=== PATIENT | male | born 1970 | race Caucasian/White ===

== ENCOUNTER 2021-11-05 08:55 | Inpatient (IN) ==
[2021-11-05] MEDS ORDERED: ONDANSETRON INJ 2 MG/ML 2 ML VIAL IV STA (09:14)
[2021-11-05] MEDS ORDERED: LABETALOL HCL IV 5 MG/ML 20ML IV STA (09:14)
[2021-11-05] MEDS ORDERED: MoRPHine SULFATE 4 MG/ML 1 ML CARP\\VIAL IV STA (09:14)
--- NOTE | 2021-11-05 09:17 | Emergency Department Note ---
Impression & Plan Chest pain ADMIT ED Provider Note HPI: The patient is a 51-year-old gentleman with longstanding history of smoking, states he otherwise does not have any medical issues but does not follow with a physician for about the past 10 years, presents emergency department chief complaint of 2 hours of left-sided chest pain that radiates down his left arm. Patient states that at times the symptoms are relatively severe, states the pain has been constant but waxes and wanes in severity. On arrival here to the ED the patient is noted to be hypertensive at 200/113, heart rate is within normal limits, he is saturating well on room air, he is in mild distress secondary to discomfort on my initial assessment. ROS: -Cardio: Left-sided chest discomfort *10 point review systems was conducted and is otherwise negative unless stated above *Outpatient medications and allergy history reviewed PE: General: Alert HEENT: Normocephalic, atraumatic Eyes: Extraocular eye movement is intact, no scleral erythema Pulmonary: Clear to auscultation bilaterally, no wheezing Cardio: Regular rate and rhythm GI: Abdomen is soft, nontender : No suprapubic tenderness MSK: No evidence of trauma or malformation of the extremities, no edema Skin: No evidence of rash Neuro: Alert, no focal deficits Psychiatric: Cooperative quality assurance monitor: - An order was placed for continuous cardiac monitoring - Patient was noted to be in sinus rhythm with rate of 70 EKG: Rate: 75 Rhythm: Sinus rhythm Intervals: NE interval 102 ms, otherwise within normal limits ST changes: No ST elevation Time: 0906 Medical Decision Making: Patient presents the emergency department the chief complaint chest pain, has been ongoing now for several hours, on arrival here to the ED the patient's initial EKG does not show any acute ischemic changes, IV was established, lab work obtained, patient was placed on a manager cardiac. Lab work shows a high-sensitivity troponin elevation of approximately 42, CT angiography of the chest was ordered and does not show any evidence of aortic dissection. At 1 point during the patient's stay here in the ED he complained of another severe episode of chest discomfort, repeat EKG was obtained and does not show any evidence of any acute ischemic changes. Patient was given morphine, IV Zofran, a dose of IV Dilaudid, he was also given a dose of IV labetalol. His blood pressure did improve from 200 systolic down to 180 systolic. Diastolic pressures elevated in the 110s. Given the patient's recurrent episodes of pain in addition to his longstanding smoking history and poor outpatient follow-up, I do feel he would benefit from admission and will require admission for cardiology consultation, trending of troponins, and further diagnostic management. Case was discussed with the on-call midlevel provider for [facility], Chrystal Martel, and the patient was placed for admission in stable condition for further management. He was ordered aspirin prior to admission, states he does have an aspirin allergy listed although this was only when he is was a child and he has not had any issues as an adult when he is taking aspirin. Critical care time: 37 minutes -Stabilization of hypertensive emergency with chest pain in the setting of an elevated high-sensitivity troponin and systolic blood pressure of 200, requiring IV antihypertensive medications, interpretation of diagnostic studies, discussion with other healthcare providers and arrangement of admission Diagnosis: 1. Chest Pain 2. Elevated high-sensitivity troponin 3. Hypertension/hypertensive emergency 4. History of tobacco use/tobacco cessation counseling encounter Disposition: Admission Abdullahi Faustin DO Emergency Medicine Past Med/Surg History Social History Smoking Status: Current every day smoker Feels Safe at Home: Yes Allergies Allergies Allergy/AdvReac Type Severity Reaction Status Date / Time aspirin Allergy Unknown asthma Verified 11/05/21 11:18 flare up Home Meds Home Medications Medication Instructions Recorded Confirmed CLONAZEPAM (KLONOPIN) 1 mg PO DAILY #0 09/08/11 CYCLOBENZAPRINE HCL (FLEXERIL) 10 mg PO TID #0 09/08/11 BUPROPION HCL (WELLBUTRIN SR) 150 mg PO DAILY #0 10/17/11 Paroxetine (Paxil) 40 mg PO DAILY #0 10/17/11 Results & Data (ED) Vital Signs Vital Signs - 24 hr 11/05/21 08:59 11/05/21 09:14 11/05/21 09:15 Temperature 36.3 C L Temperature Source Temporal Artery Scan Pulse Rate 91 H Pulse Rate [Apical] 75 Pulse Rhythm [Apical] Regular Respiratory Rate 18 16 Respiratory Effort / Characteristics Non-Labored Non-Labored Respiratory Depth Normal Normal Blood Pressure 200/113 H Blood Pressure [Left Arm] 181/120 H Blood Pressure Mean 142 Blood Pressure Mean [Left Arm] 140 Pulse Oximetry 99 98 97 Oxygen Delivery Method Room Air Room Air Room Air Sepsis Recent Fever Within 48 Hours No Sepsis New/Unexplained Change in Mental Status No Sepsis Action Taken by Nursing No Action Required 11/05/21 09:30 11/05/21 09:45 Temperature Temperature Source Pulse Rate Pulse Rate [Apical] 76 66 Pulse Rhythm [Apical] Regular Regular Respiratory Rate 14 14 Respiratory Effort / Characteristics Non-Labored Non-Labored Respiratory Depth Normal Normal Blood Pressure Blood Pressure [Left Arm] 178/113 H 182/116 H Blood Pressure Mean Blood Pressure Mean [Left Arm] 134 138 Pulse Oximetry 97 96 Oxygen Delivery Method Room Air Room Air Sepsis Recent Fever Within 48 Hours Sepsis New/Unexplained Change in Mental Status Sepsis Action Taken by Nursing Laboratory Data Result diagrams: 11/05/21 09:11 11/05/21 09:11 Lab Results 11/05/21 11/05/21 11/05/21 Range/Units 09:11 09:11 09:11 WBC 8.51 (4.8-10.8) K/uL RBC 5.19 (4.7-6.1) M/uL Hgb 15.7 (14.0-18.0) g/dL Hct 45.3 (42-52) % MCV 87.3 (80-100) fL MCH 30.3 (25-34) pg MCHC 34.7 (32-36) g/dL RDW Std Deviation 43.3 (36.4-46.3) fL RDW Coeff of Sindi 13.4 (11.5-14.5) % Plt Count 324 (130-400) K/uL MPV 9.7 (7.4-10.4) fL Immature Gran % (Auto) 0.2 % Neut % (Auto) 66.7 % Lymph % (Auto) 19.5 % Sawyer % (Auto) 6.9 % Eos % (Auto) 5.4 % Baso % (Auto) 1.3 % Neut # (Auto) 5.67 (1.4-6.5) K/uL Lymph # (Auto) 1.66 (1.2-3.4) K/uL Sawyer # (Auto) 0.59 (0.11-0.59) K/uL Eos # (Auto) 0.46 (0-0.5) K/uL Baso # (Auto) 0.11 (0-0.2) K/uL Immature Gran # (Auto) 0.02 (0.00-0.02) K/uL Sodium 139 (136-145) mmol/L Potassium 4.1 (3.5-5.1) mmol/L Chloride 109 H (98-107) mmol/L Carbon Dioxide 24 (21-32) mmol/L Anion Gap 6 (3-11) BUN 11 (6-23) mg/dl Creatinine 1.15 (0.6-1.4) mg/dl Est Cr Clr Drug Dosing 75.7 ml/min Est GFR ( Amer) 83.7 ml/min Est GFR (Non-Af Amer) 72.3 ml/min BUN/Creatinine Ratio 9.6 L (10-20) Glucose 115 H (70-99(Fasting)) mg/dl Calcium 9.1 (8.5-10.1) mg/dl Total Bilirubin 0.4 (0.2-1.0) mg/dl AST 11 L (13-39) U/L ALT 12 (7-52) U/L Alkaline Phosphatase 62 (34-104) U/L Troponin I High Sens 42.7 H (0-20) pg/ml Total Protein 6.9 (6.0-8.3) gm/dl Albumin 4.1 (3.4-5.0) gm/dl Globulin 2.8 (2.5-4.0) gm/dl Albumin/Globulin Ratio 1.5 (0.9-2) Lipase 105 H (11-82) U/L Administered Medications Discontinued Medications Hydromorphone HCl (Hydromorphone Inj 0.5 Mg/0.5 Ml Syr) 0.5 mg IV NOW STA Stop: 11/05/21 10:45 Last Admin: 11/05/21 11:06 Dose: 0.5 mg Documented by: [id number] Ioversol (Optiray 320 125ml) 120 ml IV ONCE ONE Stop: 11/05/21 10:13 Last Admin: 11/05/21 10:12 Dose: 120 ml Documented by: [id number] Labetalol HCl (Labetalol Hcl Iv 5 Mg/Ml 20ml) 10 mg IV NOW STA Stop: 11/05/21 09:15 Last Admin: 11/05/21 09:36 Dose: 10 mg Documented by: [id number] Cosigned by: [id number] Morphine Sulfate (Morphine Sulfate 4 Mg/Ml 1 Ml Carp\Vial) 4 mg IV NOW STA Stop: 11/05/21 09:15 Last Admin: 11/05/21 09:19 Dose: 4 mg Documented by: [id number] Ondansetron HCl (Ondansetron Inj 2 Mg/Ml 2 Ml Vial) 4 mg IV NOW STA Stop: 11/05/21 09:15 Last Admin: 11/05/21 09:19 Dose: 4 mg Documented by: [id number] Imaging Data Radiologist's Impression: Chest CTA 11/05/21 09:14 CT angio chest dissec wo/w con HISTORY: 51 years-old Male Chest pain, hypertension, eval for dissection acute atypical chest pain with shortness of breath COMPARISON: Chest radiograph of same day TECHNIQUE: CTA of the chest was obtained both with and without the use of 120 mL Optiray 320. 3-D coronal and sagittal MIPS were obtained from the axial data set and were submitted for review. All measurements were obtained according to NASCET criteria. A dose lowering technique was used consistent with the principals of CONCEPCION. FINDINGS: CTA: The heart is normal in size. Moderate coronary artery calcifications. There is no pericardial effusion. Atherosclerosis of the thoracic aorta without aneurysm or dissection. No mediastinal or intramural hematoma. The opacified pulmonary artery is unremarkable. No pulmonary emboli are identified. CT CHEST: Unremarkable thyroid. Subcentimeter mediastinal, hilar and axillary chain lymph nodes are likely physiologic. There is no pneumothorax, pleural effusion, airspace consolidation or overt pulmonary edema. Mild pulmonary emphysema. Mild bronchial wall thickening. Mild mosaic attenuation of the right lower lobe. The central airways are patent. No acute process of the imaged upper abdomen. 1.5 cm exophytic cyst of the superior pole left kidney. There is a 1.2 cm arterially enhancing focus noted within the right hepatic lobe on image 230. Enhancing lesion versus vascular shunting are the differential considerations. Indeterminate 8 mm hypodense focus of the right hepatic lobe on image 57 is incompletely characterized on this exam. Unremarkable soft tissues. No acute fracture or destructive bone lesion. IMPRESSION: 1. Unremarkable CTA of the chest. 2. Mild cardiomegaly with moderate coronary artery calcifications. 3. Mild pulmonary emphysema with bronchial wall thickening suggestive of bronchitis or reactive airway disease. ACT 112: Negative or not required by law. The above report was generated using voice recognition software. It may contain grammatical, syntax or spelling errors. Electronically signed by: Maurice Mccoy M.D. 11/05/2021 10:34 AM Chest X-Ray 11/05/21 09:14 XR chest 1V portable HISTORY: 51 years-old Male Chest Pain acute atypical chest pain COMPARISON: None TECHNIQUE: Portable AP view of the chest FINDINGS: The cardiomediastinal and hilar silhouettes are within normal limits. Mild nonspecific coarsening of the interstitium. No pneumothorax, pleural effusion, airspace consolidation or overt pulmonary edema. The bones of the chest appear grossly intact. IMPRESSION: No acute process. ACT 112: Negative or not required by law. The above report was generated using voice recognition software. It may contain grammatical, syntax or spelling errors. Electronically signed by: Maurice Mccoy M.D. 11/05/2021 9:30 AM Discharge Plan Visit Data Chief Complaint: Chest Pain Stated Complaint: CHEST PAIN - RADIATING DOWN L ARM W/NUMBNESS ED Provider: Abdullahi Faustin Discharge Problem: Chest pain Forms Stand Alone Forms: [employer] [facility] [employer] Prescriptions Prescriptions: No Action guaifenesin [Mucus Relief] 400 mg Tablet 400 mg PO BID PRN (Reason: Congestion) RF: 0 Referrals Referrals: PCP,NO [Primary Care Provider] - Discharge Problem: Chest pain Qualifiers: Chest pain type: unspecified Qualified Code(s): R07.9 - Chest pain, unspecified
--- NOTE | 2021-11-05 09:31 | XRay Report ---
XR chest 1V portable HISTORY: 51 years-old Male Chest Pain acute atypical chest pain COMPARISON: None TECHNIQUE: Portable AP view of the chest FINDINGS: The cardiomediastinal and hilar silhouettes are within normal limits. Mild nonspecific coarsening of the interstitium. No pneumothorax, pleural effusion, airspace consolidation or overt pulmonary edema. The bones of the chest appear grossly intact. IMPRESSION: No acute process. ACT 112: Negative or not required by law. The above report was generated using voice recognition software. It may contain grammatical, syntax o r spelling errors. Electronically signed by: Maurice Mccoy M.D. 11/05/2021 9:30 AM
[2021-11-05 09:34] LABS: Basophils # (auto) 0.11 K/uL (0-0.2); Basophils % (auto) 1.3 %; Eosinophils # (auto) 0.46 K/uL (0-0.5); Eosinophils % (auto) 5.4 %; Hematocrit (blood only) 45.3 % (42-52); Hemoglobin 15.7 g/dL (14.0-18.0); Immature Granulocytes # (auto) 0.02 K/uL (0.00-0.02); Immature Granulocytes % (auto) 0.2 %; Lymphocytes # (auto) 1.66 K/uL (1.2-3.4); Lymphocytes % (auto) 19.5 %; Mean Corpuscular Hemoglobin 30.3 pg (25-34); Mean Corpuscular Hgb Conc 34.7 g/dL (32-36); Mean Corpuscular Volume 87.3 fL (80-100); Mean Platelet Volume 9.7 fL (7.4-10.4); Monocytes # (auto) 0.59 K/uL (0.11-0.59); Monocytes % (auto) 6.9 %; Neutrophils # (auto) 5.67 K/uL (1.4-6.5); Neutrophils % (auto) 66.7 %; Platelet Count 324 K/uL (130-400); RDW Coefficient of Variation 13.4 % (11.5-14.5); RDW Standard Deviation 43.3 fL (36.4-46.3); Red Blood Count 5.19 M/uL (4.7-6.1); White Blood Count 8.51 K/uL (4.8-10.8)
[2021-11-05 09:44] LABS: Albumin Level 4.1 gm/dl (3.4-5.0); Bilirubin,Total 0.4 mg/dl (0.2-1.0); Calcium 9.1 mg/dl (8.5-10.1); Potassium 4.1 mmol/L (3.5-5.1)
[2021-11-05 09:50] LABS: Est GFR (African American) 83.7 ml/min
[2021-11-05 09:51] LABS: Albumin Globulin Ratio 1.5 (0.9-2); BUN Creatinine Ratio 9.6 (10-20); Creatinine Clr Calc Pharmacy 75.7 ml/min; Est GFR (Non-African American) 72.3 ml/min; Globulin 2.8 gm/dl (2.5-4.0); Total Protein 6.9 gm/dl (6.0-8.3)
[2021-11-05] MEDS ORDERED: OPTIRAY 320 125ml IV ONE (10:12)
--- NOTE | 2021-11-05 10:37 | CT Scan Report ---
CT angio chest dissec wo/w con HISTORY: 51 years-old Male Chest pain, hypertension, eval for dissection acute atypical chest pain w ith shortness of breath COMPARISON: Chest radiograph of same day TECHNIQUE: CTA of the chest was obtained both with and without the use of 120 mL Optiray 320. 3-D cor onal and sagittal MIPS were obtained from the axial data set and were submitted for review. All measu rements were obtained according to NASCET criteria. A dose lowering technique was used consistent wit h the principals ronald JAVIER. FINDINGS: CTA: The heart is normal in size. Moderate coronary artery calcifications. There is no pericardial effusio n. Atherosclerosis of the thoracic aorta without aneurysm or dissection. No mediastinal or intramural hematoma. The opacified pulmonary artery is unremarkable. No pulmonary emboli are identified. CT CHEST: Unremarkable thyroid. Subcentimeter mediastinal, hilar and axillary chain lymph nodes are likely phys iologic. There is no pneumothorax, pleural effusion, airspace consolidation or overt pulmonary edema. Mild pulmonary emphysema. Mild bronchial wall thickening. Mild mosaic attenuation of the right lower lobe. The central airways are patent. No acute process of the imaged upper abdomen. 1.5 cm exophytic cyst of the superior pole left kidney. There is a 1.2 cm arterially enhancing focus noted within the right hepatic lobe on image 230. Enhan cing lesion versus vascular shunting are the differential considerations. Indeterminate 8 mm hypodens e focus of the right hepatic lobe on image 57 is incompletely characterized on this exam. Unremarkabl e soft tissues. No acute fracture or destructive bone lesion. IMPRESSION: 1. Unremarkable CTA of the chest. 2. Mild cardiomegaly with moderate coronary artery calcifications. 3. Mild pulmonary emphysema with bronchial wall thickening suggestive of bronchitis or reactive airwa y disease. ACT 112: Negative or not required by law. The above report was generated using voice recognition software. It may contain grammatical, syntax o r spelling errors. Electronically signed by: Maurice Mccoy M.D. 11/05/2021 10:34 AM
[2021-11-05] MEDS ORDERED: HYDROmorphone INJ 0.5 MG/0.5 ML SYR IV STA (10:44)
[2021-11-05] MEDS ORDERED: ASPIRIN CHEW 324 MG PO STA (11:18)
[2021-11-05] MEDS ORDERED: NITROGLYCERIN SL 0.4 MG/TAB TAB SL STA (12:02)
--- NOTE | 2021-11-05 12:28 | History & Physical Report ---
Date of Service November 05, 2021 Assessment & Plan (1) Chest pain: (2) NSTEMI (non-ST elevated myocardial infarction): (3) Hypertensive emergency: (4) Tobacco abuse: Plan: This is a 51-year-old male who has significant past medical history of tobacco abuse and does not regularly see a PCP who presents to ED complaining of chest pain since 7 AM. Pt presented to ED with crushing L sided chest pain radiating to LUE with numbness and tingling. Initial ECG @ 906 per my interpretation shows inferior st depressions. Repeat Ecg during my eval @ 1203 showed resolution of these changes. Initial trop was 42 and repeat in 2 hrs was 113. Mild improvement after 3 NTG, no improvement after IV morphine or dilaudid. He did receive 10mg IV labetolol which causes mild bradycardia but no improvement in BP. After nitro BP did improve to 130s/80s transiently Chest Pain NSTEMI Hypertensive emergency Case was discussed with interventional cardiology Dr. Steven, he will be taken for emergent cardiac catheterization further plan to be determined post operatively a1c, lipid panel ordered for a.m. echo cardiogram ordered, trops trended Tobacco abuse educate on smoking cessation Dispo: to cardiac record label intern, then further dispo to be determined ICU vs PCU PCP: None, needs to establish FULL CODE Pt was seen and examined in collaboration with Dr. Gonzalez, please see addendum History of Present Illness Chief Complaint: CP since 7:00 a.m. Primary Care Provider: NO PCP This is a 51-year-old male who has significant past medical history of tobacco abuse and does not regularly see a PCP who presents to ED complaining of chest pain since 7 AM. Pain started when he was drinking a cup of coffee. It is located along the left chest wall and radiates down her left arm with associated numbness and tingling. Pain has been constant since 7 AM, but waxes and wanes in severity. Currently pain is a 8 out of 10 and described as a, "crushing." It is made worse with deep breathing, but nothing seems to make it better. It radiates to L arm with numbness and tingling. He admits to experiencing this pain in the past, specifically a few years ago when he would work out in his heart rate would get high. His symptoms would resolve when he would rest. He has never had the symptoms persist. He works at [employer] and is not overly an active person. He does admit to occasionally getting chest pain with exertion that would resolve with rest. He also admits to being short of breath. He denies any diaphoresis, palpitations, nausea or vomiting. He has no known history of any high blood pressure, high cholesterol or hyperlipidemia. He is a 1 pack/day smoker for the past 35 years. He rarely drinks alcohol. His father has a history of high blood pressure and mother has a history of stroke and dementia. His brother, who is younger than him, has suffered multiple heart attacks. He is unsure exactly what age. His brother also smokes. He denies any weight gain or loss. He denies any orthopnea, PND, edema, recent illness. He does have a chronic cough has been ongoing for the past 8 months. It is wet in nature and produces clear sputum. He denies ever being tested or having any pulmonary function studies to be evaluated for COPD. In ED patient was s ignificantly hypertensive initially with blood pressures in the 200s over 113's. His CBC and CMP was generally unremarkable except for initial elevated troponin at 42, glucose 115 and lipase at 105. His initial EKG at 9:[address] did [address] depressions inferiorly in leads II, III and aVF. Repeat EKGs show this has resolved. His repeat troponin in 2 hours elevated significantly at 113. He did receive 10 mg of IV labetalol with no improvement in blood pressure but did drop his heart rate into the 50s. He also received IV morphine and Dilaudid. Lastly he received full dose aspirin. Allergies Allergy/AdvReac Type Severity Reaction Status Date / Time aspirin Allergy Unknown asthma Verified 11/05/21 11:18 flare up Home Medications Medication Instructions Recorded Confirmed Type guaifenesin 400 mg tablet (Mucus 400 mg PO BID PRN 11/05/21 11/05/21 History Relief) Past Med/Surg History Medical History (Updated 11/05/21 @ 12:47 by Chrystal Martel PA-C) Tobacco abuse Surgical History (Updated 11/05/21 @ 12:19 by Chrystal Martel PA-C) No pertinent past surgical history Family History (Updated 11/05/21 @ 12:19 by Chrystal Martel PA-C) Brother Coronary heart disease Father Hypertension Mother Stroke Social History (Updated 11/05/21 @ 12:22 by Chrystal Martel PA-C) Smoking Status: Never smoker Tobacco Type: Cigarettes Second Hand Exposure: No; Hx Alcohol Use: No Hx Substance Use: No Preferred Language: Bahamian Pediatric Geneticist Required: No Beliefs That Will Affect Care: None Current Living Situation: Alone Feels Safe at Home: Yes Review of Systems Review of Systems: All systems reviewed & are unremarkable except as noted in HPI & below Physical Exam Physical Exam: Constitutional: WD/WN, appears acutely ill, vitals as above, in pain, slightly diaphoretic, sitting up in bed, pleasant, conversing easily Head: Normocephalic, Atraumatic Eyes: PERRL, conjunctivae normal, anicteric sclerae ENMT: external ear and nose normal, oropharynx normal Neck: trachea midline, no thyromegaly normal visual inspection Respiratory: normal respiratory effort, lungs clear to auscultation, no wheeze, rales, rhonchi. Normal insp/exp effort, no accessory muscle use Cardiovascular: RRR, no murmur, no edema Vessels: no JVD or carotid bruit Chest: normal inspection of chest , cp not reproducible Abdomen: normal bowel sounds, soft, nontender, no hepatosplenomegaly Musculoskeletal: no cyanosis or clubbing, extremities motor strength 5/5 Skin: no rashes, warm and dry normal turgor Neurologic: PERRL, EOMI, accommodation nl, no face palsy, no dysarthria CN's II-XI intact bilaterally and moves all extremities Psychiatric: A+Ox3, euthymic affect Lymphatic: no cervical or axillary lymphadenopathy : deferred Results & Data Results & Data ([facility]) Vital Signs (Past 12 Hours) Vital Signs Temp Pulse Pulse Resp BP BP Pulse Ox 11/05/21 11:00 81 18 172/111 H 93 11/05/21 09:45 66 14 182/116 H 96 11/05/21 09:30 76 14 178/113 H 97 11/05/21 09:15 75 16 181/120 H 97 11/05/21 09:14 98 11/05/21 08:59 36.3 C L 91 H 18 200/113 H 99 Diagnostic Findings Chest CTA 11/05/21 09:14 CT angio chest dissec wo/w con HISTORY: 51 years-old Male Chest pain, hypertension, eval for dissection acute atypical chest pain with shortness of breath COMPARISON: Chest radiograph of same day TECHNIQUE: CTA of the chest was obtained both with and without the use of 120 mL Optiray 320. 3-D coronal and sagittal MIPS were obtained from the axial data set and were submitted for review. All measurements were obtained according to NASCET criteria. A dose lowering technique was used consistent with the principals of CONCEPCION. FINDINGS: CTA: The heart is normal in size. Moderate coronary artery calcifications. There is no pericardial effusion. Atherosclerosis of the thoracic aorta without aneurysm or dissection. No mediastinal or intramural hematoma. The opacified pulmonary artery is unremarkable. No pulmonary emboli are identified. CT CHEST: Unremarkable thyroid. Subcentimeter mediastinal, hilar and axillary chain lymph nodes are likely physiologic. There is no pneumothorax, pleural effusion, airspace consolidation or overt pulmonary edema. Mild pulmonary emphysema. Mild bronchial wall thickening. Mild mosaic attenuation of the right lower lobe. The central airways are patent. No acute process of the imaged upper abdomen. 1.5 cm exophytic cyst of the superior pole left kidney. There is a 1.2 cm arterially enhancing focus noted within the right hepatic lobe on image 230. Enhancing lesion versus vascular shunting are the differential considerations. Indeterminate 8 mm hypodense focus of the right hepatic lobe on image 57 is incompletely characterized on this exam. Unremarkable soft tissues. No acute fracture or destructive bone lesion. IMPRESSION: 1. Unremarkable CTA of the chest. 2. Mild cardiomegaly with moderate coronary artery calcifications. 3. Mild pulmonary emphysema with bronchial wall thickening suggestive of bronchitis or reactive airway disease. ACT 112: Negative or not required by law. The above report was generated using voice recognition software. It may contain grammatical, syntax or spelling errors. Electronically signed by: Maurice Mccoy M.D. 11/05/2021 10:34 AM Chest X-Ray 11/05/21 09:14 XR chest 1V portable HISTORY: 51 years-old Male Chest Pain acute atypical chest pain COMPARISON: None TECHNIQUE: Portable AP view of the chest FINDINGS: The cardiomediastinal and hilar silhouettes are within normal limits. Mild nonspecific coarsening of the interstitium. No pneumothorax, pleural effusion, airspace consolidation or overt pulmonary edema. The bones of the chest appear grossly intact. IMPRESSION: No acute process. ACT 112: Negative or not required by law. The above report was generated using voice recognition software. It may contain grammatical, syntax or spelling errors. Electronically signed by: Maurice Mccoy M.D. 11/05/2021 9:30 AM Medications Administered Medication List Discontinued Medications Aspirin (Aspirin Chew 324 Mg) 324 mg PO NOW STA Stop: 11/05/21 11:19 Last Admin: 11/05/21 11:36 Dose: 324 mg Documented by: [id number] Hydromorphone HCl (Hydromorphone Inj 0.5 Mg/0.5 Ml Syr) 0.5 mg IV NOW STA Stop: 11/05/21 10:45 Last Admin: 11/05/21 11:06 Dose: 0.5 mg Documented by: [id number] Ioversol (Optiray 320 125ml) 120 ml IV ONCE ONE Stop: 11/05/21 10:13 Last Admin: 11/05/21 10:12 Dose: 120 ml Documented by: [id number] Labetalol HCl (Labetalol Hcl Iv 5 Mg/Ml 20ml) 10 mg IV NOW STA Stop: 11/05/21 09:15 Last Admin: 11/05/21 09:36 Dose: 10 mg Documented by: [id number] Cosigned by: [id number] Morphine Sulfate (Morphine Sulfate 4 Mg/Ml 1 Ml Carp\\Vial) 4 mg IV NOW STA Stop: 11/05/21 09:15 Last Admin: 11/05/21 09:19 Dose: 4 mg Documented by: [id number] Nitroglycerin (Nitroglycerin Sl 0.4 Mg/Tab Tab) 0.4 mg SL NOW STA Stop: 11/05/21 12:03 Last Admin: 11/05/21 12:08 Dose: 0.4 mg Documented by: [id number] Ondansetron HCl (Ondansetron Inj 2 Mg/Ml 2 Ml Vial) 4 mg IV NOW STA Stop: 11/05/21 09:15 Last Admin: 11/05/21 09:19 Dose: 4 mg Documented by: [id number] ECG Rate (beats per minute): 58 Rhythm: sinus bradycardia Findings: + RBBB Additional Comments: Initial ecg at [address] wave depressions in inferior leads COVID-19 Results Results COVID-19 Adm Lab Results: RBC 5.19 M/uL (4.7-6.1) 11/05/21 WBC 8.51 K/uL (4.8-10.8) 11/05/21 Hgb 15.7 g/dL (14.0-18.0) 11/05/21 Hct 45.3 % (42-52) 11/05/21 Plt Count 324 K/uL (130-400) 11/05/21 Neutrophils (%) (Auto) 66.7 % 11/05/21 Lymphocytes (%) (Auto) 19.5 % 11/05/21 Monocytes # (Auto) 0.59 K/uL (0.11-0.59) 11/05/21 Eosinophils # (Auto) 0.46 K/uL (0-0.5) 11/05/21 Immature Granulocyte % (Auto) 0.2 % 11/05/21 Neutrophils # (Auto) 5.67 K/uL (1.4-6.5) 11/05/21 Lymphocytes # (Auto) 1.66 K/uL (1.2-3.4) 11/05/21 Monocytes # (Auto) 0.59 K/uL (0.11-0.59) 11/05/21 Eosinophils # (Auto) 0.46 K/uL (0-0.5) 11/05/21 Basophils # (Auto) 0.11 K/uL (0-0.2) 11/05/21 Immature Granulocyte # (Auto) 0.02 K/uL (0.00-0.02) 11/05/21 Na 139 mmol/L (136-145) 11/05/21 K 4.1 mmol/L (3.5-5.1) 11/05/21 Cl 109 mmol/L (98-107) H 11/05/21 CO2 24 mmol/L (21-32) 11/05/21 Anion Gap 6 (3-11) 11/05/21 BUN 11 mg/dl (6-23) 11/05/21 Creatinine 1.15 mg/dl (0.6-1.4) 11/05/21 BUN/Creatinine Ratio 9.6 (10-20) L 11/05/21 Glucose Level 115 mg/dl (70-99(Fasting)) H 11/05/21 Ca 9.1 mg/dl (8.5-10.1) 11/05/21 Total Bilirubin 0.4 mg/dl (0.2-1.0) 11/05/21 AST/SGOT 11 U/L (13-39) L 11/05/21 ALT/SGPT 12 U/L (7-52) 11/05/21 Alkaline Phosphatase 62 U/L (34-104) 11/05/21 Total Protein 6.9 gm/dl (6.0-8.3) 11/05/21 Albumin 4.1 gm/dl (3.4-5.0) 11/05/21 Globulin 2.8 gm/dl (2.5-4.0) 11/05/21 Albumin/Globulin Ratio 1.5 (0.9-2) 11/05/21 PTT 25.9 Seconds (21.0-31.0) 11/05/21 INR 1.0 (0.9-1.1) 11/05/21 SARS-CoV-2, RNA, NAAT NEGATIVE (NEGATIVE) 11/05/21 Chest X-Ray 11/05/21 Code Status & VTE Plan Code Status FULL CODE VTE Prophylaxis Plan VTE Prophylaxis will be ordered: Yes Supervising Physician Co-Signing Physician Notes I have seen and examined the patient and have discussed the case with the provider above. I agree with the assessment and plan as stated with the following exception. 51 yo M presented to the ER with crushing left anterior chest pain with subsequent radiation into his left arm. Left arm feels weak and this is subjective as strength is intact. This began for him while he was working on his computer and drinking his morning coffee. He began looking up [place] on the computer and became more concerned. He is an active smoker with a brothe r who had 3 MIs in his 40s. He also hasn't had insurance and, therefore, hasn't seen a physician for wellness checks in 10 years. He presents with elevated BP (200/113) and doesn't know what his cholesterol is. On physical exam he is in distress because of pain that has not been controlled despite morphine, fentanyl, nitro x 3 and labetalol. Pain was not controlled despite BP at one point in the 130s systolic. Pain was described as fluctuating as if something would pop and he would have relief, however, then the pain would reoccur. Has a history of this pain in the past triggered by stress, however, it has been fleeting and not a pattern for him or long-lasting, lasting only seconds. He is oxygenating well on room air and continues to grab his chest. No gross neuro deficits and speech/,r,ory, language intact. No JVD. Extremities are warm and well-perfused. Cardiac auscultation reveals S1/2 heard without m/g/r. Radial pulses are 2+ bilaterally. Abdomen is soft, NTND. Lungs are clear to auscultation. Labwork reveals an initial positive troponin of [address] depressions in inferior leads on EKG. Two hours later, repeat trop is [address] depressions had resolved. Otherwise, CBC and BMP are within normal limits. CXR was normal and CTA revealed no evidence of dissection, with moderate coronary calcifications, and mild pulmonary emphysema with bronchial wall thickening. Coags are pending. 51 yo M smoker with untreated, uncontrolled HTN and family history of early CAD presents with hypertensive emergency and NSTEMI. As his pain is not able to be controlled and he is very symptomatic, he will be taken immediately to the record label intern for left heart catheterization. Defer to cardiology to add anticoagulant therapy. He did receive ASA 324mg at 1130 when his second troponin returned. He remains nauseous but did not vomit, with significant chest pain and hypertension. Disposition after record label intern to be determined based on findings. DO Carlos ADDENDUM: contacted by nurse that patient has been coughing for last few days. Inflamed bronchial wall on CT. Added course doxycycline and Robitussin AC/throat lozenges for comfort. Was educated earlier today about the importance of smoking cessation. DO Carlos (1) Chest pain Chest pain type: unspecified Qualified Code(s): R07.9 - Chest pain, unspecified
--- NOTE | 2021-11-05 12:59 | Communication Note ---
Date of Service: November 05, 2021 51 yo M presented to the ER with crushing left anterior chest pain with subsequent radiation into his left arm. Left arm feels weak and this is subjective as strength is intact. This began for him while he was working on his computer and drinking his morning coffee. He began looking up [place] on the computer and became more concerned. He is an active smoker with a brother who had 3 MIs in his 40s. He also hasn't had insurance and, therefore, hasn't seen a physician for wellness checks in 10 years. He presents with elevated BP (200/113) and doesn't know what his cholesterol is. On physical exam he is in distress because of pain that has not been controlled despite morphine, fentanyl, nitro x 3 and labetalol. Pain was not controlled despite BP at one point in the 130s systolic. Pain was described as fluctuating as if something would pop and he would have relief, however, then the pain would reoccur. Has a history of this pain in the past triggered by stress, however, it has been fleeting and not a pattern for him or long-lasting, lasting only seconds. He is oxygenating well on room air and continues to grab his chest. No gross neuro deficits and speech/,r,ory, language intact. No JVD. Extremities are warm and well-perfused. Cardiac auscultation reveals S1/2 heard without m/g/r. Radial pulses are 2+ bilaterally. Abdomen is soft, NTND. Lungs are clear to auscultation. Labwork reveals an initial positive troponin of [address] depressions in inferior leads on EKG. Two hours later, repeat trop is [address] depressions had resolved. Otherwise, CBC and BMP are within normal limits. CXR was normal and CTA revealed no evidence of dissection, with moderate coronary calcifications, and mild pulmonary emphysema with bronchial wall thickening. Coags are pending. 51 yo M smoker with untreated, uncontrolled HTN and family history of early CAD presents with hypertensive emergency and NSTEMI. As his pain is not able to be controlled and he is very symptomatic, he will be taken immediately to the laboratory aide for left heart catheterization. Defer to cardiology to add anticoagulant therapy. He did receive ASA 324mg at 1130 when his second troponin returned. He remains nauseous but did not vomit, with significant chest pain and hypertension. Disposition after laboratory aide to be determined based on findings. [place], DO
[2021-11-05 13:32] LABS: Partial Thromboplastin Ratio 0.9; Partial Thromboplastin Time 25.9 Seconds (21.0-31.0); Prothrombin Time 10.4 Seconds (9.0-12.0)
[2021-11-05] MEDS ORDERED: niCARdipine HCL INJ 2.5 MG/ML 10 ML AMP ONE (13:36)
[2021-11-05] MEDS ORDERED: HEPARIN (PORCINE) 1000 UNIT/ML 10 ML (CATH LAB USE ONLY) ONE (13:36)
[2021-11-05] MEDS ORDERED: MIDAZOLAM HCL 1 MG/ML 2ML VIAL ONE (13:36)
[2021-11-05] MEDS ORDERED: fentaNYL citrate 100 MCG/2 ML VIAL ONE (13:36)
[2021-11-05] MEDS ORDERED: NITROGLYCERIN/D5W 100MCG/ML 20ML SYR ONE (13:37)
--- NOTE | 2021-11-05 14:38 | Pre Anesthesia Assessment ---
Date of Service November 05, 2021 Pre Sedation Assessment Vital Signs Temp Pulse Pulse Resp BP BP Pulse Ox 11/05/21 13:26 98.8 F 69 20 142/97 H 96 11/05/21 13:18 98.8 F 67 20 142/97 H 97 11/05/21 11:00 81 18 172/111 H 93 11/05/21 09:45 66 14 182/116 H 96 11/05/21 09:30 76 14 178/113 H 97 11/05/21 09:15 75 16 181/120 H 97 11/05/21 09:14 98 11/05/21 08:59 97.3 F L 91 H 18 200/113 H 99 Cardiovascular RRR, no murmur, no edema Respiratory normal respiratory effort, lungs clear to auscultation Pre-Sedation Airway Assessment Smoking Status: Never smoker Hx Sleep Apnea: No Hx Difficult Intubation: No Short, Thick Neck: No Thyromental Distance: > or= 3.5 Finger Breadths Oral Cavity: + WNL Mallampati Class: II ASA: ASA3 NPO Status Date of Last Intake of Fluids: 11/05/21 Time of Last Intake of Fluids: 07:00 Date of Last Intake of Solid Food: 11/04/21 Time of Last Intake of Solid Foods: 19:00 Procedure Planning Contraindications for Sedation: none Current Medications Reviewed: Yes Notes The planned sedation has been discussed with the patient. Informed Consent was obtained. I have identified the patient, determined the appropriateness of sedation and have assessed the patient immediately prior to the procedure. All medicine(s) and interventions are by my order.
--- NOTE | 2021-11-05 14:38 | Post Anesthesia Assessment ---
Date of Service November 05, 2021 Post Sedation Assessment Vital Signs Temp Pulse Pulse Resp BP BP Pulse Ox 11/05/21 13:26 98.8 F 69 20 142/97 H 96 11/05/21 13:18 98.8 F 67 20 142/97 H 97 11/05/21 11:00 81 18 172/111 H 93 11/05/21 09:45 66 14 182/116 H 96 11/05/21 09:30 76 14 178/113 H 97 11/05/21 09:15 75 16 181/120 H 97 11/05/21 09:14 98 11/05/21 08:59 97.3 F L 91 H 18 200/113 H 99 Recovery Score Activity: Moves 4 extremities Respiration: Deep Breath/Cough Circulation: +/-20% PreAnes Value Consciousness: Fully Awake Oxygen Saturation: O2 needed for >90% Discharge Sedation Level of Care: Fast Track Phase II Post Sedation Plan On clinical assessment, the patient appears to have tolerated the sedation without complications. Patient is recovering as anticipated. Patient will continue to be monitored by nursing and may be discharged when sedation discharge criteria are met per below protocol. Upon Completions of procedure up to 15 minutes continue every 5 minute vital signs and the P.A.R. score; then discharge to a Phase I or Fast Track to Phase II per the following guidelines: * Discharge Patient to appropriate Phase II area if PAR is 8 or greater or return to pre- procedure baseline. The post - procedure orders will be as directed. * If PAR score is less than 8 or not return to pre-procedure baseline then patient will follow Phase I monitoring till PAR is reached for Phase II. The Phase I may be done in procedure room or may call to secure a Phase I area. * If naloxone or flumazenil are used for reversal, hold in Phase I for continued monitoring from when last reversal dose was given for a minimum of 60 minutes or longer pending the nurse and/or physician discretion of patient condition before discharge to Phase II. Please call the Sedation Physician to re-evaluate and complete post-note for discharge to Phase II area. Do NOT discharge from procedure sedation or Phase 1 until post- sedation evaluation note is complete by procedure /sedation MD Sedation Discharge Instructions to be given to the patient at discharge to home.
--- NOTE | 2021-11-05 14:46 | Cardiac Catheterization ---
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 Cardiac Status Clinical evaluation leading to the procedure CAD Presenation: Non STEMI Diagnostic Physicians Name: John Steven MD Closure Device Recommendations: PCI without planned CABG Cardiac Cath Procedure Full Procedure Date November 05, 2021 Pre-Procedure Diagnosis Pre-Procedure Diagnosis: Non STEMI AUC Score AUC Score: 8 Post-Procedure Diagnosis Post-Procedure Diagnosis: Severe CAD, Successful PCI and Normal Intracardiac Pressures Procedure(s) Performed Procedure(s) Performed: Coronary Angiography, Left Heart Cath and Drug Eluting Stent Knowledge Architect John Steven MD Operator Coating Furnace(s) Aileen Estimated Blood Loss Estimated Blood Loss: 15 Medication(s) Medication(s): Clopidogrel, Fentanyl, Heparin, Lidocaine 1%, Nicardipine, Nitroglycerin and Versed Summary of Findings Indication: NSTEMI Access: 6 Fr right radial artery Catheters: [place], diagnostic JR4, EBU 3.5 guide Findings: LM -normal caliber, no significant disease LAD -medium caliber, mild diffuse proximal to mid disease, 50% mid stenosis, distal vessel extends around apex. Medium D1 60% proximal prior to 100% acute occlusion Circumflex -large caliber, large OM1 with 40-50% proximal, 40% mid stenosis. Distal AV groove circumflex with moderate 40% stenosis prior to left PLB. RCA -100% proximal chronic total occlusion. Large right PDA, PLB and distal RCA fill retrograde via septal collaterals. LVEDP -10 -- PCI -- Antithrombotic therapy: Heparin, ticagrelor Procedure: Left main cannulated with EBU 3.5 guide Pre-procedure flow JING 0 Door To Door Sales Representative 50 wire passed across lesion into distal vessel Proximal/mid D1 lesion predilated with 2.0 compliant balloon Dilated lesion stented with 2.25 x 22 mm [place] drug-eluting stent Stent post-dilated with 3.0 noncompliant balloon IC vasodilators administered for spasm Post procedure JING 3 flow, stent well expanded with minimal residual stenosis and no apparent cardiac complications. Stent and just before bifurcation with residual ostial stenosis and superior branch. Arterial Closure: TR band Summary: 1. Severe multivessel coronary artery disease -100% acute proximal first diagonal 100% proximal RCA chronic total occlusion with left to right collaterals 50% mid LAD 40 to 50% proximal large OM1, 40% distal circumflex 2. Normal intracardiac filling pressure 3. Successful PCI of proximal to mid first diagonal with single drug-eluting stent (2.25 x 22 mm Lj; postdilated with 3.0 NC). Recommendations: To PCU for continued monitoring Loaded with ticagrelor 180 mg in Urban Gardening Specialist Continue dual-antiplatelet therapy for at least 1 year Continue statin, and ASCVD risk factor modification Consult cardiac Rehab Hemodynamics Rest Ao:: 118/75/94 Final Ao: 126/79/99 LV: 121/10 Recommendations Recommendations: PCI without planned CABG Specimens Specimens: None Radiation Exposure (mGy) 3315 Contrast (mls) 130 Fluids (cc crystalloids) Fluids (cc crystalloids): 216 Anesthesia Moderate 9376-5806 Procedural Complication(s) None Disposition PCU I attest to the content of the Intraoperative Record and any orders documented therein. Any exceptions are noted below. [facility] Card Cath Procedure Codes Cardiac Catheterization Procedure 1: Cardiovascular Cath Procedures: 11683 Coronaries and LHC (+/-LV) Moderate Sedation Procedure 1: Sedation/Anesthesia: 94195 Mod Sedation by the same physician;Init15 Min Child Age 5 & Up Procedure 2: Sedation/Anesthesia: 01589 Mod Sedation by the same physician; Ea [id number] Minutes Stenting Procedure 1: Cardiovascular Stent Procedures: 38372 Perc transluminal revascularization of acute sub/total occl, aMI PG Care Time/CCT Total # of Minutes Spent Total Time Spent with Patient: Total time spent is greater than 50% in coordination of care (as documented) at patient's floor/unit and/or counseling patient:
[2021-11-05] MEDS ORDERED: ACETAMINOPHEN 325 MG TAB PO PRN ×2 (15:05→15:07)
--- NOTE | 2021-11-05 15:05 | Cardiology Consultation ---
Date of Consultation November 05, 2021 Assessment & Plan (1) NSTEMI (non-ST elevated myocardial infarction): Acutely occluded proximal D1 post PCI with YESSI 2. Multivessel nonculprit CAP511% RCA EVENT HOST, moderate mid LAD, OM1, distal LCx 3. Hypertension 4. Tobacco abuse Stable, chest pain-free post PCI to occluded diagonal. Admit to PCU for further monitoring Loaded with ticagrelor in Director Of Video Analytics. With insurance status likely transition to clopidogrel prior to discharge Continue DAPT for 1 year Trend troponin until peak Check echocardiogram in a.m. Start beta-erick, ADOLFO, statin Smoking cessation History of Present Illness Attending Physician: John Steven MD History of Present Illness Mr. Rosario is a 51-year-old man seen today in the setting of NSTEMI. No prior cardiac history. Ongoing smoker, 1 pack/day. Strong family history of premature CAD, younger brother has had multiple PCI. Patient reports intermittent brief, mild exertional chest pain for months. This morning developed similar pain at rest which persisted and radiated down his left arm. Presented to ED where was hypertensive with serial ECG showing dynamic changes, transient inferior ST depressions, very subtle ST elevations in 1 aVL V2. Hs troponin 42 up to 113. Despite morphine, labetalol, nitro continued to have chest pain. Underwent urgent cardiac catheterization which revealed an acutely occluded proximal D1 treated with a single drug-eluting stent. Also noted to have a chronic proximal RCA occlusion with [id number] collaterals and moderate mid LAD, OM1, distal circumflex disease. Post procedure chest pain-free. Past medical history: States has not seen a doctor in probably 10 years Social history: Lives dependently, smoker as above, works at [employer]. Allergies Allergy/AdvReac Type Severity Reaction Status Date / Time aspirin Allergy Unknown asthma Verified 11/05/21 11:18 flare up Home Medications Medication Instructions Recorded Confirmed Type guaifenesin 400 mg tablet (Mucus 400 mg PO BID PRN 11/05/21 11/05/21 History Relief) Patient History Medical History (Updated 11/05/21 @ 12:47 by Chrystal Martel PA-C) Tobacco abuse Surgical History (Updated 11/05/21 @ 12:19 by Chrystal Martel PA-C) No pertinent past surgical history Family History (Updated 11/05/21 @ 12:19 by Chrystal Martel PA-C) Brother Coronary heart disease Father Hypertension Mother Stroke Social History (Updated 11/05/21 @ 12:22 by Chrystal Martel PA-C) Smoking Status: Never smoker Tobacco Type: Cigarettes Second Hand Exposure: No; Do You Dip or Chew Tobacco: No; Tobacco Cessation Education Requested by Patient: No Hx Alcohol Use: No Hx Substance Use: No Preferred Language: Nauruan Customer Security Clerk Required: No Beliefs That Will Affect Care: None Current Living Situation: Alone Other Information That Helps Us Care for You: No Feels Safe at Home: Yes Review of Systems Review of Systems: All systems reviewed & are unremarkable except as noted in HPI & below Physical Exam Physical Exam: General: Comfortable HEENT: Sclerae anicteric Lungs: Clear to auscultation bilaterally, no crackles or wheezes Cardiac: Regular rate and rhythm, no murmurs. Vascular: TR band in place. No bruits Abdomen: Soft, nontender Extremities: Well perfused, no peripheral edema Neuro: Nonfocal Psych: Alert orient x3, normal affect and mood Results & Data ([facility]) Vital Signs (Past 12 Hours) Vital Signs Temp Pulse Pulse Resp BP BP Pulse Ox 11/05/21 14:58 62 18 119/84 97 11/05/21 14:43 58 L 20 126/81 95 11/05/21 13:26 98.8 F 69 20 142/97 H 96 11/05/21 13:18 98.8 F 67 20 142/97 H 97 11/05/21 11:00 81 18 172/111 H 93 11/05/21 09:45 66 14 182/116 H 96 11/05/21 09:30 76 14 178/113 H 97 11/05/21 09:15 75 16 181/120 H 97 11/05/21 09:14 98 11/05/21 08:59 97.3 F L 91 H 18 200/113 H 99 PG Care Time/CCT Total # of Minutes Spent Total Time Spent with Patient: Total time spent is greater than 50% in coordination of care (as documented) at patient's floor/unit and/or counseling patient: Coding Level of Care Code 41464 Inpt Consult Level 4 Diagnoses NSTEMI (non-ST elevated myocardial infarction) I21.4
[2021-11-05] MEDS ORDERED: ALUMINUM/MAGNESIUM SUSP 30 ML UDC PO PRN (15:07)
[2021-11-05] MEDS ORDERED: MAGNESIUM HYDROXIDE SUSP 30 ML UDC PO PRN (15:07)
[2021-11-05] MEDS ORDERED: POLYETHYLENE (MIRALAX) 17 GM PACK PO PRN (15:07)
[2021-11-05] MEDS ORDERED: ONDANSETRON INJ 2 MG/ML 2 ML VIAL IV PRN (15:07)
[2021-11-05] MEDS ORDERED: SODIUM CHLORIDE 0.9% 1000ML 1,000 ML IV SCH (15:15)
--- NOTE | 2021-11-05 15:41 | Electrocardiogram Report ---
Test Reason : Blood Pressure : / mmHG Vent. Rate : 075 BPM Atrial Rate : 075 BPM P-R Int : 102 ms QRS Dur : 092 ms QT Int : 364 ms P-R-T Axes : 012 009 004 degrees QTc Int : 406 ms Sinus rhythm Incomplete right bundle branch block ST segment changes concerning for ischemia Borderline ECG When compared with ECG of 09-SEP-2011 00:01, ST now depressed in Inferior leads T wave inversion now evident in Inferior leads T wave amplitude has increased in Anterior leads Confirmed by John Lott ([id number]) on 11/05/2021 3:41:22 PM Referred By: REFERRED SELF Confirmed By:Charles Lott
--- NOTE | 2021-11-05 15:44 | Electrocardiogram Report ---
Test Reason : Blood Pressure : / mmHG Vent. Rate : 064 BPM Atrial Rate : 064 BPM P-R Int : 102 ms QRS Dur : 088 ms QT Int : 378 ms P-R-T Axes : 037 045 021 degrees QTc Int : 389 ms Poor data quality, interpretation may be adversely affected Sinus rhythm Incomplete right bundle branch block Abnormal ECG Confirmed by John Lott ([id number]) on 11/05/2021 3:43:33 PM Referred By: REFERRED SELF Confirmed By:Charles Lott
--- NOTE | 2021-11-05 15:48 | Electrocardiogram Report ---
Test Reason : Blood Pressure : / mmHG Vent. Rate : 063 BPM Atrial Rate : 063 BPM P-R Int : 108 ms QRS Dur : 090 ms QT Int : 384 ms P-R-T Axes : 007 014 010 degrees QTc Int : 392 ms Sinus rhythm Incomplete right bundle branch block Confirmed by John Lott ([id number]) on 11/05/2021 3:48:24 PM Referred By: REFERRED SELF Confirmed By:Charles Lott
[2021-11-05] MEDS: TICAGRELOR 90 MG TAB PO ONE ×2 (15:53→15:56)
[2021-11-05] MEDS: lisinopril 5 MG TAB PO SCH (16:10)
[2021-11-05] MEDS: METOPROLOL TARTRATE 25 MG TAB PO SCH (21:11)
[2021-11-05] MEDS ORDERED: COUGH DROP (SUGAR FREE) LOZ 24 LOZ/1 BOX BUCCAL PRN (22:04)
[2021-11-05] MEDS: DOXYCYCLINE HYCLATE 100 MG CAP PO SCH (22:43)
[2021-11-05] MEDS: TICAGRELOR 90 MG TAB PO SCH (22:43)
[2021-11-06 07:22] LABS: Albumin Globulin Ratio 1.5 (0.9-2); Albumin Level 3.7 gm/dl (3.4-5.0); BUN Creatinine Ratio 10.4 (10-20); Bilirubin,Total 0.6 mg/dl (0.2-1.0); Calcium 8.7 mg/dl (8.5-10.1); Chol HDL Ratio 6.3 (0-5); Creatinine Clr Calc Pharmacy 79.3 ml/min; Est GFR (African American) 83.7 ml/min; Est GFR (Non-African American) 72.3 ml/min; Globulin 2.4 gm/dl (2.5-4.0); Total Protein 6.1 gm/dl (6.0-8.3)
[2021-11-06 07:27] LABS: Basophils # (auto) 0.06 K/uL (0-0.2); Basophils % (auto) 0.6 %; Eosinophils # (auto) 0.36 K/uL (0-0.5); Eosinophils % (auto) 3.7 %; Hematocrit (blood only) 41.9 % (42-52); Hemoglobin 14.2 g/dL (14.0-18.0); Immature Granulocytes # (auto) 0.01 K/uL (0.00-0.02); Immature Granulocytes % (auto) 0.1 %; Lymphocytes # (auto) 2.01 K/uL (1.2-3.4); Lymphocytes % (auto) 20.6 %; Mean Corpuscular Hgb Conc 33.9 g/dL (32-36); Mean Corpuscular Volume 88.6 fL (80-100); Mean Platelet Volume 9.9 fL (7.4-10.4); Monocytes # (auto) 0.67 K/uL (0.11-0.59); Monocytes % (auto) 6.9 %; Neutrophils # (auto) 6.67 K/uL (1.4-6.5); Neutrophils % (auto) 68.1 %; Platelet Count 298 K/uL (130-400); RDW Coefficient of Variation 13.6 % (11.5-14.5); RDW Standard Deviation 44.6 fL (36.4-46.3); Red Blood Count 4.73 M/uL (4.7-6.1); White Blood Count 9.78 K/uL (4.8-10.8)
[2021-11-06 07:32] LABS: Estimated Average Glucose 123 mg/dl; Hemoglobin A1C 5.9 % (4.5-5.6)
[2021-11-06] MEDS: TICAGRELOR 90 MG TAB PO SCH (08:36)
[2021-11-06] MEDS: METOPROLOL TARTRATE 25 MG TAB PO SCH (08:36)
[2021-11-06] MEDS: lisinopril 5 MG TAB PO SCH (08:36)
[2021-11-06] MEDS: DOXYCYCLINE HYCLATE 100 MG CAP PO SCH (08:36)
--- NOTE | 2021-11-06 08:58 | Cardiology Progress Note ---
Date of Service November 06, 2021 Assessment & Plan (1) NSTEMI (non-ST elevated myocardial infarction): Plan: Acutely occluded proximal D1 post PCI with YESSI 2. 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 Hypertension 4. Tobacco abuse 5. Dyslipidemia No additional chest pain overnight. Hemodynamically and electrically stable No access site complications Post procedure labs stable Reviewed echocardiogramEF 55 to 60%, subtle basal to mid anterolateral hypokinesis, no significant valvular pathology Reports some breathlessness this morning. No heart failure on exam. O2 sats normal. Suspect may be related to ticagrelor. we will transition ticagrelor to clopidogrel. Load with 300 mg this afternoon Continue DAPT with aspirin, clopidogrel for 1 year Continue current statin Continue current metoprolol, lisinopril Repeat troponin this morning. If troponin downtrending and chest pain-free walking halls okay with discharge later this afternoon. Discussed smoking cessation Follow-up with me in 1 to 2 weeks. Admission and Anticipated Discharge Date Admission Date: November 05, 2021 Subjective Feeling well. No chest pain. Does endorse some feeling of breathlessness. Telemetry reviewedno significant ectopy Review of Systems Review of Systems: All systems reviewed & are unremarkable except as noted in HPI & below Physical Exam Physical Exam: General: Comfortable HEENT: Sclerae anicteric Lungs: Clear to auscultation bilaterally, no crackles or wheezes Cardiac: Regular rate and rhythm, no murmurs. Vascular: Right radial artery access site with no ecchymosis, hematoma. Distal pulse and sensation intact. Abdomen: Soft, nontender Extremities: Well perfused, no peripheral edema Neuro: Nonfocal Psych: Alert orient x3, normal affect and mood Results & Data ([facility]) Vital Signs (Past 12 Hours) Vital Signs Temp Pulse Pulse Resp BP Pulse Ox 11/06/21 08:07 98.8 F 61 20 121/72 98 11/06/21 07:41 69 11/06/21 04:12 97.5 F L 121 H 20 127/76 98 11/05/21 23:05 57 L 11/05/21 23:00 99.0 F 70 20 135/86 95 PG Care Time/CCT Total # of Minutes Spent Total Time Spent with Patient: Total time spent is greater than 50% in coordination of care (as documented) at patient's floor/unit and/or counseling patient: Coding Level of Care Code 29948 Subseq Hosp Care Lvl 3 Diagnoses NSTEMI (non-ST elevated myocardial infarction) I21.4
[2021-11-06] MEDS ORDERED: ASPIRIN 81 MG ECTAB PO SCH (09:00)
[2021-11-06] MEDS ORDERED: ATORVASTATIN 40 MG TAB PO SCH (09:00)
--- NOTE | 2021-11-06 13:32 | XCELERA ---
[id number]
--- NOTE | 2021-11-06 14:44 | Hospitalist Progress Note ---
Date of Service November 06, 2021 Assessment & Plan (1) Chest pain: (2) NSTEMI (non-ST elevated myocardial infarction): (3) Hypertensive emergency: (4) Tobacco abuse: Plan: Patient is a 51 yr male who has significant past medical history of tobacco abuse and does not regularly see a PCP who presents to ED complaining of chest pain since 7 AM. 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 Mild cardiomegaly with moderate coronary artery calcifications. Mild pulmonary emphysema with bronchial wall thickening suggestive of bronchitis or reactive airway disease. Advised to quit smoking Appreciate cardiology input Continue aspirin, Plavix for 1 year Continue statin, metoprolol, lisinopril Needs follow-up with cardiology in 1 to 2 weeks Hypertensive emergency Likely situational Blood pressure stable Continue current medication Hyperlipidemia Continue statin Prediabetes HbA1c 5.9 Healthy lifestyle changes Tobacco abuse Counselled smoking cessation DVT Px: SCDs Code Status FULL CODE Admission and Anticipated Discharge Date Admission Date: November 05, 2021 Subjective Patient is seen and examined at bedside Chest pain completely resolved States having minimal dyspnea this morning Denies any dizziness, nausea, abdominal pain Offers no new complaints Review of Systems Review of Systems: All systems reviewed & are unremarkable except as noted in Subjective Physical Exam Physical Exam: Physical Exam: Vitals signs as noted above General Appearance:Moderately built and nourished, no apparent distress Head: normocephalic, Atraumatic Eyes: normal inspection, EOMI Neck: supple, Trachea midline Respiratory/Chest: Normal breath sounds, CTA Cardiovascular: S1, S2, No murmur Abdomen/GI:Soft, Non tender, Bowel sounds present Extremities/Musculoskeletal:normal inspection, no edema Neurologic/Psych:AAOX3, grossly no focal neurological deficits Skin: normal color, warm Results & Data Results & Data ([facility]) Vital Signs (Past 12 Hours) Vital Signs Temp Pulse Pulse Resp BP Pulse Ox 11/06/21 12:45 37.1 C 54 L 19 132/78 97 11/06/21 08:07 37.1 C 61 20 121/72 98 11/06/21 07:41 69 11/06/21 04:12 36.4 C L 121 H 20 127/76 98 Laboratory Results Short CBC 11/06/21 Range/Units 05:58 WBC 9.78 (4.8-10.8) K/uL Hgb 14.2 (14.0-18.0) g/dL Hct 41.9 L (42-52) % Plt Count 298 (130-400) K/uL BMP 11/06/21 05:58 Sodium 138 Potassium 4.0 Chloride 107 Carbon Dioxide 27 BUN 12 Creatinine 1.15 Glucose 95 Calcium 8.7 Liver Function 11/06/21 Range/Units 05:58 Total Bilirubin 0.6 (0.2-1.0) mg/dl AST 65 H (13-39) U/L ALT 20 (7-52) U/L Alkaline Phosphatase 54 (34-104) U/L Albumin 3.7 (3.4-5.0) gm/dl (1) Chest pain Chest pain type: unspecified Qualified Code(s): R07.9 - Chest pain, un specified
[2021-11-06] MEDS ORDERED: CLOPIDOGREL BISULFATE 300 MG TAB PO ONE (15:00)
--- NOTE | 2021-11-06 15:26 | Discharge Summary ---
Date of Service November 06, 2021 Admission HPI Per Admitting Provider This is a 51-year-old male who has significant past medical history of tobacco abuse and does not regularly see a PCP who presents to ED complaining of chest pain since 7 AM. Pain started when he was drinking a cup of coffee. It is located along the left chest wall and radiates down her left arm with associated numbness and tingling. Pain has been constant since 7 AM, but waxes and wanes in severity. Currently pain is a 8 out of 10 and described as a, "crushing." It is made worse with deep breathing, but nothing seems to make it better. It radiates to L arm with numbness and tingling. He admits to experiencing this pain in the past, specifically a few years ago when he would work out in his heart rate would get high. His symptoms would resolve when he would rest. He has never had the symptoms persist. He works at [employer] and is not overly an active person. He does admit to occasionally getting chest pain with exertion that would resolve with rest. He also admits to being short of breath. He denies any diaphoresis, palpitations, nausea or vomiting. He has no known history of any high blood pressure, high cholesterol or hyperlipidemia. He is a 1 pack/day smoker for the past 35 years. He rarely drinks alcohol. His father has a history of high blood pressure and mother has a history of stroke and dementia. His brother, who is younger than him, has suffered multiple heart attacks. He is unsure exactly what age. His brother also smokes. He denies any weight gain or loss. He denies any orthopnea, PND, edema, recent illness. He does have a chronic cough has been ongoing for the past 8 months. It is wet in nature and produces clear sputum. He denies ever being tested or having any pulmonary function studies to be evaluated for COPD. In ED patient was significantly hypertensive initially with blood pressures in the 200s over 113's. His CBC and CMP was generally unremarkable except for initial elevated troponin at 42, glucose 115 and lipase at 105. His initial EKG at 9:[address] depressions inferiorly in leads II, III and aVF. Repeat EKGs show this has resolved. His repeat troponin in 2 hours elevated significantly at 113. He did receive 10 mg of IV labetalol with no improvement in blood pressure but did drop his heart rate into the 50s. He also received IV morphine and Dilaudid. Lastly he received full dose aspirin. Admission Exam Per Admitting Provider Physical Exam Physical Exam: Constitutional: WD/WN, appears acutely ill, vitals as above, in pain, slightly diaphoretic, sitting up in bed, pleasant, conversing easily Head: Normocephalic, Atraumatic Eyes: PERRL, conjunctivae normal, anicteric sclerae ENMT: external ear and nose normal, oropharynx normal Neck: trachea midline, no thyromegaly normal visual inspection Respiratory: normal respiratory effort, lungs clear to auscultation, no wheeze, rales, rhonchi. Normal insp/exp effort, no accessory muscle use Cardiovascular: RRR, no murmur, no edema Vessels: no JVD or carotid bruit Chest: normal inspection of chest , cp not reproducible Abdomen: normal bowel sounds, soft, nontender, no hepatosplenomegaly Musculoskeletal: no cyanosis or clubbing, extremities motor strength 5/5 Skin: no rashes, warm and dry normal turgor Neurologic: PERRL, EOMI, accommodation nl, no face palsy, no dysarthria CN's II-XI intact bilaterally and moves all extremities Psychiatric: A+Ox3, euthymic affect Lymphatic: no cervical or axillary lymphadenopathy : deferred Principal Diagnosis Non-ST elevated Myocardial Infarction Hypertensive emergency Hyperlipidemia Prediabetes Discharge Data Allergies Allergy/AdvReac Type Severity Reaction Status Date / Time aspirin Allergy Unknown asthma Verified 11/05/21 11:18 flare up Consultations 11/05/21 11:28 ED Decision to Admit Stat 11/05/21 14:35 Consult Cardiology Routine 11/05/21 15:08 Consult Cardiac Rehabilitation Routine Procedures Performed Operation Date: 11/05/21 13:30 Actual Procedures s Cineradiography w/Routine Exam - John Steven MD s Cath, Left with Cors and Vent - John Steven MD p Drug Eluting Stent SGl Vessel - John Steven MD Ordered Studies 11/05/21 09:14 CT angio chest dissec wo/w con Stat 11/05/21 12:53 CL Cath Imgs for PACS use only Stat Hospital Course (1) Chest pain: (2) NSTEMI (non-ST elevated myocardial infarction): (3) Hypertensive emergency: (4) Tobacco abuse: Patient is a 51 yr male who has significant past medical history of tobacco abuse and does not regularly see a PCP who presents to ED complaining of chest pain since 7 AM. 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 Mild cardiomegaly with moderate coronary artery calcifications. Mild pulmonary emphysema with bronchial wall thickening suggestive of bronchitis or reactive airway disease. Advised to quit smoking Appreciate cardiology input Continue aspirin, Plavix for 1 year Continue statin, metoprolol, lisinopril Needs follow-up with cardiology in 1 to 2 weeks Hypertensive emergency Likely situational Blood pressure stable Continue current medication Hyperlipidemia Continue statin Prediabetes HbA1c 5.9 Healthy lifestyle changes Tobacco abuse Counselled smoking cessation DVT Px: SCDs Code Status FULL CODE Total Time Total Time Spent Total Time Spent (In Minutes): 46 minutes Discharge Plan Discharge Items Patient Disposition: Home - Self-Care Reason For Visit: CHEST PAIN, HTN URGENCY Discharge Diagnosis: Non-ST elevated Myocardial Infarction Hypertensive emergency Hyperlipidemia Prediabetes Activity: Per Instructions section Exercise/Sports: Wait until after follow-up appointment Non-emergency contact: Primary Care Provider and Coronary Clinical Specialist Call non-emergency contact if: you have any medication questions, your symptoms worsen, your pain is not controlled, your pain is concerning for you and you have a fever Follow-up/Referrals: Ryan Acosta MD [Outside Practitioners] - (Date & Time 11/10/2021 11:00 AM Provider Ryan Acosta MD [address] [id number] ) Diet: Heart Healthy Addtl Attending Provider Instructions: Follow-up with your primary care physician on 11/10/2021 11:00 AM Follow-up with your cork slabs sawyer Dr. John Steven in 1-2 weeks --Smoking tobacco as advised --Take medications regularly as prescribed. Seek immediate medical attention if your symptoms reoccur or worsen Please take all medications as instructed on discharge list below. Please call if you have any questions or problems. You can reach a [facility] hospitalist on duty at [facility] 24 hours a day by calling [phone] Home Care: * Take your medications exactly as directed. Don't skip doses. * Remember that recovery after a heart attack takes time. Plan to rest for at lease 4-8 weeks while you recover. Then return to normal activity when your doctor says it's okay. * Ask your doctor about joining a heart rehabilitation program. * Tell your doctor if you are feeling depressed. Feelings of sadness are common after a heart attack, but it is important that you speak to someone if you are feeling overwhelmed by these feelings. * If you are having chest pain, call 911 for an ambulance. Do NOT drive yourself to the hospital. * Ask your family members to learn CPR. * Learn to take your own blood pressure and pulse. Keep a record of your results. Ask your doctor when you should seek emergency medical attention. He or she will tell you which blood pressure reading is dangerous. Lifestyle Changes: * Maintain a healthy weight. Get help to lose any extra pounds. * Cut back on salt. * Limit canned, dried, packaged, and fast foods. * Don't add salt to your food. * Season foods with herbs instead of salt when you cook. * Break the smoking habit. Enroll in a stop-smoking program to improve your chances of success. * Limit fatty foods. * Ask your doctor about having your lipid levels checked regularly. * Build up your activity according to your doctor's recommendation. * Ask your doctor when it's okay to resume sexual activity. * Tell your doctor about any erectile dysfunction (ED) medication you are taking. Some ED medications are not safe if you take certain heart medications. * Try to manage stress. Follow Up: It is important for you to keep your follow up appointments with your medical provider. Pending Studies at Discharge: No Stand-Alone Forms: My [facility] [employer], Smoking Cessation Medications and DC Order Prescriptions: New atorvastatin 40 mg Tablet 80 mg PO QAM Qty: 30 RF: 1 doxycycline hyclate 100 mg Capsule 100 mg PO BID Qty: 8 RF: 0 clopidogrel 75 mg Tablet 75 mg PO QAM Qty: 30 RF: 1 aspirin 81 mg Tablet,Delayed Release (Dr/Ec) 81 mg PO QAM Qty: 30 RF: 1 lisinopril [Zestril] 5 mg Tablet 5 mg PO QAM Qty: 30 RF: 1 metoprolol tartrate 25 mg Tablet 25 mg PO BID Qty: 60 RF: 1 Continued guaifenesin [Mucus Relief] 400 mg Tablet 400 mg PO BID PRN (Reason: Congestion) RF: 0 Discharge Orders: Discharge Order (Routine); Ordered 11/06/21 Ordered By: Flavio Urbano/Other Patient Handouts: Metoprolol Oral Tablet 25 mg, Atorvastatin Oral Tablet 40 mg, Aspirin Chewable Tablet 81 mg, Lisinopril Oral Tablet 5 mg, Doxycycline Hyclate Oral Capsule 100 mg, ED Cardiac Cath Post Bleed Admission Data Admit Date/Time: 11/05/21 12:46 Attending Provider: Flavio Alejandre Admit Provider: Tammi Gonzalez Primary Care Provider: PCP,NO Other Providers: Tammi Gonzalez ; John Steven Other Interventions: Discharge Summary Assessment (RN) Last Done: 11/06/21 15:21
--- NOTE | 2021-11-06 17:54 | Electrocardiogram Report ---
Test Reason : Blood Pressure : / mmHG Vent. Rate : 058 BPM Atrial Rate : 058 BPM P-R Int : 104 ms QRS Dur : 094 ms QT Int : 394 ms P-R-T Axes : 027 046 047 degrees QTc Int : 386 ms Sinus bradycardia with short GA Incomplete right bundle branch block Abnormal ECG Confirmed by John Lott ([id number]) on 11/06/2021 5:54:30 PM Referred By: REFERRED SELF Confirmed By:Charles Lott
--- NOTE | 2021-11-06 17:55 | Electrocardiogram Report ---
Test Reason : Blood Pressure : / mmHG Vent. Rate : 071 BPM Atrial Rate : 071 BPM P-R Int : 122 ms QRS Dur : 092 ms QT Int : 394 ms P-R-T Axes : 073 035 052 degrees QTc Int : 428 ms Normal sinus rhythm with sinus arrhythmia Incomplete right bundle branch block Abnormal ECG Confirmed by John Lott ([id number]) on 11/06/2021 5:55:27 PM Referred By: REFERRED SELF Confirmed By:Charles Lott
--- NOTE | 2021-11-06 18:02 | Electrocardiogram Report ---
Test Reason : Blood Pressure : / mmHG Vent. Rate : 062 BPM Atrial Rate : 062 BPM P-R Int : 130 ms QRS Dur : 084 ms QT Int : 406 ms P-R-T Axes : 068 051 019 degrees QTc Int : 412 ms Normal sinus rhythm with sinus arrhythmia Incomplete right bundle branch block Confirmed by John Lott ([id number]) on 11/06/2021 6:01:50 PM Referred By: REFERRED SELF Confirmed By:Charles Lott
[2021-11-07] MEDS ORDERED: CLOPIDOGREL BISULFATE 75 MG TAB PO SCH (09:00)
== END 2021-11-06 16:47 | disposition home or self-care (01) | DRG 247 ==
LOC: ED 08:55 → 2S 13:09 → CC 13:09 → SUATTDRO 13:10 → INTOOBSV 13:10 → 2S 13:10

== ENCOUNTER 2022-02-25 20:15 | Observation (INO) ==
[2022-02-25 20:50] LABS: Basophils # (auto) 0.08 K/uL (0-0.2); Basophils % (auto) 0.9 %; Eosinophils # (auto) 0.27 K/uL (0-0.50); Hematocrit (blood only) 43.7 % (40.1-51.0); Hemoglobin 14.8 g/dl (14.0-18.0); Immature Granulocytes # (auto) 0.03 K/uL (0.00-0.02); Immature Granulocytes % (auto) 0.3 %; Lymphocytes # (auto) 2.14 K/uL (1.2-3.4); Lymphocytes % (auto) 23.4 %; Mean Corpuscular Hemoglobin 29.5 pg (25.0-34.0); Mean Corpuscular Hgb Conc 33.9 g/dL (32.0-36.0); Mean Corpuscular Volume 87.1 fL (80.0-100.0); Mean Platelet Volume 9.6 fL (9.4-12.4); Monocytes # (auto) 0.51 K/uL (0.24-0.82); Monocytes % (auto) 5.6 %; Neutrophils # (auto) 6.11 K/uL (1.4-6.5); Neutrophils % (auto) 66.8 %; Platelet Count 228 K/uL (130-400); RDW Coefficient of Variation 14.5 % (11.5-14.5); RDW Standard Deviation 46.5 fL (36.4-46.3); Red Blood Count 5.02 M/uL (4.63-6.08); White Blood Count 9.14 K/ul (4.8-10.8)
[2022-02-25 21:05] LABS: INR 0.9 (0.9-1.1); Partial Thromboplastin Ratio 0.9; Partial Thromboplastin Time 25.3 Seconds (21.0-31.0)
--- NOTE | 2022-02-25 21:12 | Emergency Department Note ---
Impression & Plan Chest pain, Abnormal EKG ED Provider Note NAME: YAMEL LIEBERMAN AGE: 51 SEX: M : 1970 ARRIVES VIA: Walk-In INFORMANT: Patient, ED PROVIDER(S): Ramses Estrella DO CHIEF COMPLAINT: Chest pain HPI: The patient is a 51-year-old male who presented to the emergency department for an evaluation of chest pain. The patient states he was at work today earlier in the afternoon. He started noticing chest discomfort over the left side of his chest. He describes it as a pressure. He states he had similar episode in the past in the spring. At that time he was noted to have an NSTEMI. He had a cardiac catheterization which resulted in a stent. He was also diagnosed with multivessel coronary artery disease. The patient denies having any fever. He denies having any cough. He does complain of some shortness of breath but denies having any swelling in his legs. He took aspirin as well as nitroglycerin prior to coming to the emergency department. He states he had minimal improvement of his symptoms. ROS: See above HPI for pertinent positives & negatives. A total of 10 systems reviewed and were otherwise negative. PAST MEDICAL HISTORY: See Below PAST SURGICAL HISTORY: See Below FAMILY HISTORY: See Below SOCIAL HISTORY: See Below HOME MEDICATIONS: See Below ALLERGIES: See Below VITALS: See Below PHYSICAL EXAMINATION: GENERAL: Patient is awake alert in no acute distress patient is resting comfortably and showing no signs of anxiety EYES: The conjunctivae are clear. The pupils are round and reactive. EARS, NOSE, MOUTH AND THROAT: The nose is without any evidence of any deformity. NECK: The neck is nontender and supple. RESPIRATORY: Normal respiratory effort is noted there is no evidence of wheezing rhonchi or rales CARDIOVASCULAR: Regular rate and rhythm noted there no murmurs rubs or gallops normal S1 normal S2. GASTROINTESTINAL: The abdomen is soft. Abdomen is nontender. MUSCULOSKELETAL/EXTREMITIES: There is no evidence of gross deformity full range of motion is noted in the hips and shoulders. SKIN: There is no obvious evidence of any rash. There are no petechiae, pallor or cyanosis noted. NEUROLOGIC: Patient is awake alert and oriented x3 strength is symmetric patellar reflexes are 2+ bilaterally MEDICAL DECISION MAKING: The patient is a 51-year-old male who presented to the emergency department for an evaluation of chest pain. The patient has a history of coronary artery disease. He was seen in our facility in October of this year. At that time he had a cardiac catheterization for an NSTEMI and was found to have multivessel disease. He did have a stent to culprit vessel. The patient started taking nitroglycerin this evening for chest discomfort. This would be the first time he is taken nitroglycerin. The patient states he had some relief of his pain. I discussed patient's laboratory and radiographic studies with him. I also discussed the limitations of the emergency department work-up for chest pain with him. Ultimately given the patient's risk factors and his EKG findings I discussed his case with the on-call [facility] Hospitalist. They have agreed to evaluate the patient in the emergency department for further management and disposition. Triage Nursing notes reviewed. Prior medical records reviewed Vital Signs: reviewed and remarkable for elevated blood pressure. Differential diagnosis: Cardiac ischemia, aortic dissection, pulmonary embolism, pneumothorax, pneumonia, pericarditis, myocarditis, esophageal rupture, GERD, cholecystitis, pancreatitis, musculoskeletal, as well as other pathologies. ER treatment provided: See below Diagnostics interpreted by me: ECG: EKG was obtained in the emergency department. My interpretation is normal sinus rhythm at 74 bpm. Incomplete right bundle branch block pattern was noted. Apical inferior and low lateral ST depressions were noted. This was compared to a tracing from November 06, 2021. No changes were noted. Cardiac Monitoring: An order was placed for continuous cardiac monitoring. The monitor shows a rate of 90 bpm with sinus rhythm. Laboratory studies: As stated above and show below. Imaging studies: See below Consultation(s): I discussed this case with Dr. Null is on-call for the [facility] Hospitalist group. Past Med/Surg History Medical History CAD, multiple vessel Dyslipidemia (high LDL; low HDL) HTN (hypertension) Hypertensive emergency NSTEMI (non-ST elevated myocardial infarction) Tobacco abuse Surgical History No pertinent past surgical history Stented coronary artery Family History Brother Coronary heart disease Father Hypertension Mother Stroke Social History Smoking Status: Current every day smoker Tobacco Type: Cigarettes Second Hand Exposure: No; Hx Alcohol Use: No Hx Substance Use: No Preferred Language: Armenian Communication Ability: Effective Monotype Machinist Required: No Beliefs That Will Affect Care: None Current Living Situation: Alone How many Children do You have: 3 Feels Safe at Home: Yes Assistive Devices: None Allergies Allergies Allergy/AdvReac Type Severity Reaction Status Date / Time aspirin Allergy Intermediate asthma Verified 02/25/22 22:54 flare up Home Meds Home Medications Medication Instructions Recorded Confirmed atorvastatin 80 mg tablet 80 mg PO QAM 02/25/22 02/25/22 escitalopram oxalate 10 mg tablet 10 mg PO DAILY 02/25/22 02/25/22 lisinopril 20 mg tablet 20 mg PO DAILY 02/25/22 02/25/22 metoprolol tartrate 25 mg tablet 12.5 mg PO BID 02/25/22 02/25/22 nitroglycerin 0.4 mg sublingual 0.4 mg sublingual DIRECTED PRN 02/25/22 02/25/22 tablet Chest Pain Previous Rx's Medication Instructions Recorded aspirin 81 mg tablet,delayed 81 mg PO QAM #90 tabs 12/30/21 release clopidogrel 75 mg tablet 75 mg PO QAM #90 tabs 12/30/21 Results & Data (ED) Vital Signs Vital Signs - 24 hr 02/25/22 20:20 Temperature 36.9 C Temperature Source Temporal Artery Scan Pulse Rate 92 H Respiratory Rate 20 Blood Pressure 171/103 H Blood Pressure Mean 125 Pulse Oximetry 996 H Oxygen Delivery Method Room Air Sepsis Recent Fever Within 48 Hours No Sepsis New/Unexplained Change in Mental Status No Sepsis Action Taken by Nursing No Action Required Home Medications Current Medication List: was personally reviewed by me Laboratory Data Attestation: I reviewed the patient's lab results. Result diagrams: 02/25/22 20:30 02/25/22 20:30 Lab Results 02/25/22 02/25/22 02/25/22 Range/Units 20:30 20:30 20:30 WBC 9.14 (4.8-10.8) K/ul RBC 5.02 (4.63-6.08) M/uL Hgb 14.8 (14.0-18.0) g/dl Hct 43.7 (40.1-51.0) % MCV 87.1 (80.0-100.0) fL MCH 29.5 (25.0-34.0) pg MCHC 33.9 (32.0-36.0) g/dL RDW Std Deviation 46.5 H (36.4-46.3) fL RDW Coeff of Sindi 14.5 (11.5-14.5) % Plt Count 228 (130-400) K/uL MPV 9.6 (9.4-12.4) fL Immature Gran % (Auto) 0.3 % Neut % (Auto) 66.8 % Lymph % (Auto) 23.4 % [place] % (Auto) 5.6 % Eos % (Auto) 3.0 % Baso % (Auto) 0.9 % Neut # (Auto) 6.11 (1.4-6.5) K/uL Lymph # (Auto) 2.14 (1.2-3.4) K/uL [place] # (Auto) 0.51 (0.24-0.82) K/uL Eos # (Auto) 0.27 (0-0.50) K/uL Baso # (Auto) 0.08 (0-0.2) K/uL Immature Gran # (Auto) 0.03 H (0.00-0.02) K/uL PT 10.0 (9.0-12.0) Seconds INR 0.9 (0.9-1.1) APTT 25.3 (21.0-31.0) Seconds PTT Ratio 0.9 Sodium 135 L (136-145) mmol/L Potassium 3.3 L (3.5-5.1) mmol/L Chloride 103 (98-107) mmol/L Carbon Dioxide 25 (21-32) mmol/L Anion Gap 7 (3-11) BUN 13 (6-23) mg/dl Creatinine 1.15 (0.6-1.4) mg/dl Est Cr Clr Drug Dosing 76.3 ml/min Est GFR ( Amer) 83.7 ml/min Est GFR (Non-Af Amer) 72.3 ml/min BUN/Creatinine Ratio 11.3 (10-20) Glucose 187 H (70-99(Fasting)) mg/dl Calcium 9.0 (8.5-10.1) mg/dl Total Bilirubin 0.4 (0.2-1.0) mg/dl AST 16 (13-39) U/L ALT 20 (7-52) U/L Alkaline Phosphatase 74 (34-104) U/L Troponin I High Sens 8.7 (0-20) pg/ml Total Protein 6.9 (6.0-8.3) gm/dl Albumin 4.2 (3.4-5.0) gm/dl Globulin 2.7 (2.5-4.0) gm/dl Albumin/Globulin Ratio 1.6 (0.9-2) SARS-CoV-2, RNA, NAAT (NEGATIVE) 02/25/22 Range/Units 21:10 WBC (4.8-10.8) K/ul RBC (4.63-6.08) M/uL Hgb (14.0-18.0) g/dl Hct (40.1-51.0) % MCV (80.0-100.0) fL MCH (25.0-34.0) pg MCHC (32.0-36.0) g/dL RDW Std Deviation (36.4-46.3) fL RDW Coeff of Sindi (11.5-14.5) % Plt Count (130-400) K/uL MPV (9.4-12.4) fL Immature Gran % (Auto) % Neut % (Auto) % Lymph % (Auto) % [place] % (Auto) % Eos % (Auto) % Baso % (Auto) % Neut # (Auto) (1.4-6.5) K/uL Lymph # (Auto) (1.2-3.4) K/uL [place] # (Auto) (0.24-0.82) K/uL Eos # (Auto) (0-0.50) K/uL Baso # (Auto) (0-0.2) K/uL Immature Gran # (Auto) (0.00-0.02) K/uL PT (9.0-12.0) Seconds INR (0.9-1.1) APTT (21.0-31.0) Seconds PTT Ratio Sodium (136-145) mmol/L Potassium (3.5-5.1) mmol/L Chloride (98-107) mmol/L Carbon Dioxide (21-32) mmol/L Anion Gap (3-11) BUN (6-23) mg/dl Creatinine (0.6-1.4) mg/dl Est Cr Clr Drug Dosing ml/min Est GFR ( Amer) ml/min Est GFR (Non-Af Amer) ml/min BUN/Creatinine Ratio (10-20) Glucose (70-99(Fasting)) mg/dl Calcium (8.5-10.1) mg/dl Total Bilirubin (0.2-1.0) mg/dl AST (13-39) U/L ALT (7-52) U/L Alkaline Phosphatase (34-104) U/L Troponin I High Sens (0-20) pg/ml Total Protein (6.0-8.3) gm/dl Albumin (3.4-5.0) gm/dl Globulin (2.5-4.0) gm/dl Albumin/Globulin Ratio (0.9-2) SARS-CoV-2, RNA, NAAT NEGATIVE (NEGATIVE) Imaging Data Attestation: I personally reviewed and interpreted this imaging study as follows: My Impression: 1 view chest x-ray was obtained in the emergency department. My interpretation is no free air, no definite infiltrate, no acute disease. Discharge Plan Visit Data Chief Complaint: Chest Pain Stated Complaint: CHEST PAIN ED Provider: Ramses Estrella Discharge Problem: Chest pain, Abnormal EKG Patient Disposition: Being Evaluated by Hospitalist Forms Stand Alone Forms: My [facility] Prescriptions Prescriptions: No Action aspirin 81 mg tablet,delayed release (DR/EC) 81 mg PO QAM Qty: 90 3RF clopidogrel 75 mg tablet 75 mg PO QAM Qty: 90 3RF atorvastatin 80 mg tablet 80 mg PO QAM Rx Instructions: WILL TAKE UNTIL 02/28/22, THEN SWITCH TO ROSUVASTATIN 40 MG DAILY lisinopril 20 mg tablet 20 mg PO DAILY nitroglycerin 0.4 mg tablet, sublingual 0.4 mg sublingual DIRECTED PRN (Reason: Chest Pain) escitalopram oxalate 10 mg tablet 10 mg PO DAILY metoprolol tartrate 25 mg tablet 12.5 mg PO BID Referrals Referrals: PCP,NO [Physician] -
[2022-02-25 21:16] LABS: Troponin I High Sensitivity 8.7 pg/ml (0-20)
[2022-02-25 21:21] LABS: Albumin Globulin Ratio 1.6 (0.9-2); Albumin Level 4.2 gm/dl (3.4-5.0); BUN Creatinine Ratio 11.3 (10-20); Bilirubin,Total 0.4 mg/dl (0.2-1.0); Creatinine Clr Calc Pharmacy 76.3 ml/min; Est GFR (African American) 83.7 ml/min; Est GFR (Non-African American) 72.3 ml/min; Globulin 2.7 gm/dl (2.5-4.0); Potassium 3.3 mmol/L (3.5-5.1); Total Protein 6.9 gm/dl (6.0-8.3)
[2022-02-25] MEDS ORDERED: ASPIRIN CHEW 324 MG PO STA (22:43)
[2022-02-25] MEDS ORDERED: POTASSIUM CHLORIDE CRTAB 20 MEQ TABCR PO STA (22:44)
[2022-02-25] MEDS ORDERED: lisinopril 5 MG TAB PO ONE (22:45)
--- NOTE | 2022-02-26 01:17 | History & Physical Report ---
Date of Service February 26, 2022 Assessment & Plan (1) Chest pain: Plan: Possible unstable angina hx CAD status post stent hypertension, initially elevated upon arrival at the ER hyperlipidemia, on statin Rx. Patient Lipitor switched to Crestor by new company accountant following outpatient visit 2 weeks ago due to recent suboptimal outpatient LDL level from 2 months ago COPD, stable prediabetes, hemoglobin A1c of 6.19 December 2021 Hypokalemia ongoing tobacco abuse OBS PCU Continue patient antiplatelet Rx, statin for secondary CAD prevention Follow troponin IV heparin if with subsequent elevation Cardiology consult Re: Chest pain N.p.o. until patient seen by cardiology in a.m. in anticipation of ischemic work-up Replace potassium Nicotine patch as needed DVT prophylaxis. Lovenox subcu Full code Text document was generated using [employer] voice recognition software. It may contain grammatical or spelling errors. Kindly contact undersigned for clarification of any documentation item in question. History of Present Illness Chief Complaint: Chest pain Primary Care Provider: Dr. Acosta History obtained from patient and records. Medical history significant for CAD status post stent, hypertension, hyperlipidemia, COPD, prediabetes, ongoing tobacco abuse. Last confinement October 2021 for NSTEMI. Severe multivessel CAD found on diagnostic cardiac catheterization. YESSI placement for 100% acute proximal first diagonal occlusion. 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 Some relief with nitroglycerin intake at home. Patient compliant with home meds. No unusual stress at home. Patient consulted ER for evaluation. 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 Allergies Allergy/AdvReac Type Severity Reaction Status Date / Time aspirin Allergy Intermediate asthma Verified 02/25/22 22:54 flare up Home Medications Medication Instructions Recorded Confirmed Type aspirin 81 mg tablet,delayed 81 mg PO QAM #90 tabs 12/30/21 02/25/22 Rx release clopidogrel 75 mg tablet 75 mg PO QAM #90 tabs 12/30/21 02/25/22 Rx atorvastatin 80 mg tablet 80 mg PO QAM 02/25/22 02/25/22 History escitalopram oxalate 10 mg tablet 10 mg PO DAILY 02/25/22 02/25/22 History lisinopril 20 mg tablet 20 mg PO DAILY 02/25/22 02/25/22 History metoprolol tartrate 25 mg tablet 12.5 mg PO BID 02/25/22 02/25/22 History nitroglycerin 0.4 mg sublingual 0.4 mg sublingual DIRECTED PRN 02/25/22 02/25/22 History tablet Chest Pain Past Med/Surg History Medical History CAD, multiple vessel Dyslipidemia (high LDL; low HDL) HTN (hypertension) Hypertensive emergency NSTEMI (non-ST elevated myocardial infarction) Tobacco abuse Surgical History No pertinent past surgical history Stented coronary artery Family History Brother Coronary heart disease Father Hypertension Mother Stroke Social History Smoking Status: Current every day smoker Tobacco Type: Cigarettes Second Hand Exposure: No; Hx Alcohol Use: No Hx Substance Use: No Preferred Language: Nepali Communication Ability: Effective Squeegee Finisher Required: No Beliefs That Will Affect Care: None Current Living Situation: Alone How many Children do You have: 3 Feels Safe at Home: Yes Assistive Devices: None Review of Systems Review of Systems: As per HPI, all other systems reviewed and negative Physical Exam Physical Exam: GENERAL: Comfortable, pleasant, obese, no respiratory distress SKIN: Normal color, warm HEENT: Partial alopecia, [place] palpebral conjunctivae, no ptosis, moist buccal mucosa NECK : Supple, no tenderness CHEST : CTA, no tenderness HEART : Bradycardic, no obvious murmurs ABDOMEN: Some distention, nontender EXTREMITIES : No LE swelling/tenderness, no other conspicuous deformities noted NEUROLOGIC : Coherent, no facial asymmetry, no other gross focality Results & Data Results & Data ([facility]) Vital Signs (Past 12 Hours) Vital Signs Temp Pulse Pulse Resp BP BP Pulse Ox 02/25/22 23:39 65 18 144/91 H 96 02/25/22 20:20 36.9 C 92 H 20 171/103 H 996 H O2 Del Method 02/25/22 23:39 Room Air 02/25/22 20:20 Room Air Laboratory Results Laboratory Results WBC 9.14 K/ul (4.8-10.8) 02/25/22 20: RBC 5.02 M/uL (4.63-6.08) 02/25/22 20: Hgb 14.8 g/dl (14.0-18.0) 02/25/22: Hct 43.7 % (40.1-51.0) 02/25/22: MCV 87.1 fL (80.0-100.0) 02/25/22: MCH 29.5 pg (25.0-34.0) 02/25/22 MCHC 33.9 g/dL (32.0-36.0) 02/25/22 RDW Std Deviation 46.5 fL (36.4-46.3) H 02/25/22 RDW Coeff of Sindi 14.5 % (11.5-14.5) 02/25/22 Plt Count 228 K/uL (130-400) 02/25/22 MPV 9.6 fL (9.4-12.4) 02/25/22: Immature Gran % (Auto) 0.3 % 02/25/22: Neut % (Auto) 66.8 % 02/25/22: Lymph % (Auto) 23.4 % 02/25/22: [place] % (Auto) 5.6 % 02/25/22: Eos % (Auto) 3.0 % 02/25/22: Baso % (Auto) 0.9 % 02/25/22 Neut # (Auto) 6.11 K/uL (1.4-6.5) 02/25/22: Lymph # (Auto) 2.14 K/uL (1.2-3.4) 02/25/22: [place] # (Auto) 0.51 K/uL (0.24-0.82) 02/25/22: Eos # (Auto) 0.27 K/uL (0-0.50) 02/25/22 20: Baso # (Auto) 0.08 K/uL (0-0.2) 02/25/22 Immature Gran # (Auto) 0.03 K/uL (0.00-0.02) H 02/25/22 20:30 PT 10.0 Seconds (9.0-12.0) 02/25/22 20:30 INR 0.9 (0.9-1.1) 02/25/22 20:30 APTT 25.3 Seconds (21.0-31.0) 02/25/22 20:30 PTT Ratio 0.9 02/25/22 20:30 Sodium 135 mmol/L (136-145) L 02/25/22 20:30 Potassium 3.3 mmol/L (3.5-5.1) L 02/25/22 20:30 Chloride 103 mmol/L (98-107) 02/25/22 20:30 Carbon Dioxide 25 mmol/L (21-32) 02/25/22 20:30 Anion Gap 7 (3-11) 02/25/22 20:30 BUN 13 mg/dl (6-23) 02/25/22 20:30 Creatinine 1.15 mg/dl (0.6-1.4) 02/25/22 20:30 Est Cr Clr Drug Dosing 76.3 ml/min 02/25/22 20:30 Est GFR ( Amer) 83.7 ml/min 02/25/22 20:30 Est GFR (Non-Af Amer) 72.3 ml/min 02/25/22 20:30 BUN/Creatinine Ratio 11.3 (10-20) 02/25/22 20:30 Glucose 187 mg/dl (70-99(Fasting)) H 02/25/22 20:30 Calcium 9.0 mg/dl (8.5-10.1) 02/25/22 20:30 Total Bilirubin 0.4 mg/dl (0.2-1.0) 02/25/22 20:30 AST 16 U/L (13-39) 02/25/22 20:30 ALT 20 U/L (7-52) 02/25/22 20:30 Alkaline Phosphatase 74 U/L (34-104) 02/25/22 20:30 Troponin I High Sens 8.7 pg/ml (0-20) 02/25/22 20:30 Total Protein 6.9 gm/dl (6.0-8.3) 02/25/22 20:30 Albumin 4.2 gm/dl (3.4-5.0) 02/25/22 20:30 Globulin 2.7 gm/dl (2.5-4.0) 02/25/22 20:30 Albumin/Globulin Ratio 1.6 (0.9-2) 02/25/22 20:30 SARS-CoV-2, RNA, NAAT NEGATIVE (NEGATIVE) 02/25/22 21:10 Diagnostic Findings Chest x-ray as per my interpretation no congestion EKG as per my interpretation : Rate 75, NSR, normal axis, incomplete RBBB, no ischemia (1) Chest pain Chest pain type: unspecified Qualified Code(s): R07.9 - Chest pain, unspecified
[2022-02-26] MEDS ORDERED: LACTATED RINGER'S 1,000 ML IV ONE (01:22)
[2022-02-26 01:29] LABS: Magnesium 2.1 mg/dl (1.7-2.4)
[2022-02-26 01:36] LABS: Troponin I High Sensitivity 10.3 pg/ml (0-20)
[2022-02-26] MEDS ORDERED: PROMETHAZINE HCL 12.5 MG in SODIUM CHLORIDE 0.9% 50 ML IV PRN (01:52)
[2022-02-26] MEDS ORDERED: traMADol HCL 50 MG TABLET PO PRN (01:52)
[2022-02-26] MEDS ORDERED: NITROGLYCERIN SL 0.4 MG/TAB TAB SL PRN (01:52)
[2022-02-26] MEDS ORDERED: ACETAMINOPHEN 325 MG TAB PO PRN (01:52)
[2022-02-26] MEDS ORDERED: MoRPHine SULFATE 4 MG/ML 1 ML CARP\\VIAL IV PRN (01:52)
[2022-02-26 05:51] LABS: Basophils # (auto) 0.09 K/uL (0-0.2); Basophils % (auto) 1.2 %; Eosinophils # (auto) 0.28 K/uL (0-0.50); Eosinophils % (auto) 3.6 %; Hemoglobin 14.7 g/dl (14.0-18.0); Immature Granulocytes # (auto) 0.02 K/uL (0.00-0.02); Immature Granulocytes % (auto) 0.3 %; Lymphocytes % (auto) 27.2 %; Mean Corpuscular Hemoglobin 29.4 pg (25.0-34.0); Mean Corpuscular Hgb Conc 34.2 g/dL (32.0-36.0); Mean Platelet Volume 9.7 fL (9.4-12.4); Monocytes # (auto) 0.61 K/uL (0.24-0.82); Monocytes % (auto) 7.9 %; Neutrophils # (auto) 4.61 K/uL (1.4-6.5); Neutrophils % (auto) 59.8 %; Platelet Count 218 K/uL (130-400); RDW Coefficient of Variation 14.6 % (11.5-14.5); RDW Standard Deviation 46.3 fL (36.4-46.3); White Blood Count 7.71 K/ul (4.8-10.8)
[2022-02-26 06:01] LABS: Partial Thromboplastin Ratio 0.9; Partial Thromboplastin Time 25.7 Seconds (21.0-31.0)
[2022-02-26 06:31] LABS: BUN Creatinine Ratio 12.4 (10-20); Calcium 8.5 mg/dl (8.5-10.1); Creatinine Clr Calc Pharmacy 90.4 ml/min; Est GFR (African American) 102.9 ml/min; Est GFR (Non-African American) 88.8 ml/min; Potassium 4.3 mmol/L (3.5-5.1)
--- NOTE | 2022-02-26 08:28 | XRay Report ---
XR chest 1V portable CLINICAL HISTORY: Atypical chest pain. COMPARISON STUDY: Chest radiograph and chest CT November 05, 2021. FINDINGS: Lung volumes are normal. Lungs are clear. There is no pneumothorax or pleural effusion. Car diac size is normal. Mediastinal contours are normal. There is no evidence for pulmonary edema. IMPRESSION: No acute cardiopulmonary findings. ACT 112: Negative or not required by law. Electronically signed by: Breezy Fairchild M.D. 02/26/2022 8:26 AM
[2022-02-26] MEDS ORDERED: ROSUVASTATIN CALCIUM 20 MG TAB PO SCH (09:00)
[2022-02-26] MEDS ORDERED: ESCITALOPRAM OXALATE 10 MG TAB PO SCH (09:00)
[2022-02-26] MEDS ORDERED: ENOXAPARIN INJ 40 MG/0.4 ML SYR SQ SCH (09:00)
[2022-02-26] MEDS ORDERED: ASPIRIN 81 MG ECTAB PO SCH (09:00)
[2022-02-26] MEDS ORDERED: METOPROLOL TARTRATE 25 MG TAB PO SCH (09:00)
[2022-02-26] MEDS ORDERED: lisinopril 20 MG TAB PO SCH (09:00)
[2022-02-26] MEDS ORDERED: CLOPIDOGREL BISULFATE 75 MG TAB PO SCH (09:00)
--- NOTE | 2022-02-26 12:24 | Cardiology Consultation ---
Date of Consultation February 26, 2022 Assessment & Plan (1) Chest pain: - Patient with recent non-ST segment elevation myocardial infarction October, receiving drug-eluting stent to acute thrombotic occlusion of the diagonal 1 branch of the LAD at that time. Residual disease including a total chronic occlusion of the proximal right coronary artery and 50% LAD stenosis managed medically. Patient had established with Dr. Parker of our practice 2 weeks ago and at that time he was feeling well. He presented overnight with vague chest discomfort, and some wheezing was reminiscent of his previous angina. Given stable EKG findings, negative high-sensitivity troponin, patient underwent exercise stress echocardiogram today 02/26/2022 supervised by the undersigned. Resting echocardiogram revealed normal resting wall motion without significant wall motion abnormalities. No significant valvular pathology. Normal LVEF. Stress portion of the study was negative for inducible ischemia. The patient started with a 3/10 severity vague chest discomfort that actually improved with exercise. The stress EKG was negative for ischemia. Stress wall motion negative for ischemia. SARS-CoV-2 screen is negative. ESR and C-reactive protein levels do not reflect suggestion of pericarditis. Stress test results suggest stable coronary heart disease, I think if he was having a problem with regards to in-stent restenosis of his diagonal disease he would have had significant EKG changes, and angina as well as wall motion abnormalities provoked on the stress echocardiogram. Continue medical therapy to include aspirin 81 mg daily, clopidogrel 75 mg daily, metoprolol tartrate 12.5 mg twice daily, lisinopril 20 mg daily, rosuvastatin 40 mg daily. Add Imdur (isosorbide mononitrate extended release) 30 mg by mouth daily to start tomorrow. Patient can take 1/2 tablet for the first week, and increase to a full tablet as tolerated after 7 days. Patient stable for discharge by cardiology standpoint, with need to take his typical morning medications prior to discharge from the emergency room as he should not miss his aspirin and clopidogrel. (2) HTN (hypertension): Metoprolol, lisinopril, isosorbide mononitrate (3) Dyslipidemia (high LDL; low HDL): Continue rosuvastatin (4) Tobacco abuse: -Smoking cessation advised, discussed with patient. History of Present Illness Attending Physician: Tammi Gonzalez, DO History of Present Illness Alejandro Rosario is a 51-year-old male seen in cardiology consultation per the request of Dr Rand for the evaluation of chest discomfort. 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 He took a sublingual nitroglycerin which made him feel lightheaded, and partially relieved the discomfort. He has had several other twinges of discomfort since his coronary stent procedure in October. He was concerned that symptoms are reminiscent of his previous anginal pain and presents for evaluation. Thus far presenting EKG, and serial high-sensitivity troponin levels have been negative. At the time my assessment he described a 3/10 ongoing chest discomfort, but was in no acute distress. He states he has been adherent to taking his medications including aspirin clopidogrel. Patient's past medical history is notable for known coronary heart disease. In October, he presented with chest discomfort, with initial EKG revealing ST depression in the inferior leads, and he had an elevated high-sensitivity troponin. He underwent cardiac catheterization performed by Dr. Steven of interventional cardiology with multivessel coronary heart disease as noted below with findings of a culprit 100% acute stenosis of a diagonal branch of the LAD at its proximal portion. A 100% proximal chronic total occlusion of the right coronary artery was observed with noted [id number] collaterals. Patient underwent PCI of the proximal to mid diagonal 1 with a drug-eluting stent and his residual disease has been managed medically. Overall the patient describes that he has been feeling well. Has been adherent with his medications. He notes that he still smoking cigarettes, he is down to 1/2 pack/day as compared to his previous 1 pack/day. Cardiac Catheterization 10/2021 revealed the followin. Severe multivessel coronary artery disease -- 100% acute proximal first diagonal -- 100% proximal RCA chronic total occlusion with left to right collaterals -- 50% mid LAD stenosis -- 40% to 50% proximal large OM1, 40% distal circumflex 2. Normal intracardiac filling pressure 3. Successful PCI of proximal to mid D1 with single drug-eluting stent ([place] 2.25 x 22 mm; postdilated with 3.0 NC). Allergies Allergy/AdvReac Type Severity Reaction Status Date / Time aspirin Allergy Intermediate asthma Verified 02/25/22 22:54 flare up Home Medications Medication Instructions Recorded Confirmed Type aspirin 81 mg tablet,delayed 81 mg PO QAM #90 tabs 12/30/21 02/25/22 Rx release clopidogrel 75 mg tablet 75 mg PO QAM #90 tabs 12/30/21 02/25/22 Rx atorvastatin 80 mg tablet 80 mg PO QAM 02/25/22 02/25/22 History escitalopram oxalate 10 mg tablet 10 mg PO DAILY 02/25/22 02/25/22 History lisinopril 20 mg tablet 20 mg PO DAILY 02/25/22 02/25/22 History metoprolol tartrate 25 mg tablet 12.5 mg PO BID 02/25/22 02/25/22 History nitroglycerin 0.4 mg sublingual 0.4 mg sublingual DIRECTED PRN 02/25/22 02/25/22 History tablet Chest Pain Patient History Medical History CAD, multiple vessel Dyslipidemia (high LDL; low HDL) HTN (hypertension) Hypertensive emergency NSTEMI (non-ST elevated myocardial infarction) Tobacco abuse Surgical History No pertinent past surgical history Stented coronary artery Family History Brother Coronary heart disease Father Hypertension Mother Stroke Social History Smoking Status: Current every day smoker Tobacco Type: Cigarettes Second Hand Exposure: No; Hx Alcohol Use: Yes Alcohol Intake Frequency: Monthly or Less Hx Substance Use: No Preferred Language: Sierra Leonean Communication Ability: Effective Inside Contractor Sales Required: No Beliefs That Will Affect Care: None Current Living Situation: Alone How many Children do You have: 3 Feels Safe at Home: Yes Safety Concerns: Feels Safe At This Time Assistive Devices: None Review of Systems Review of Systems: All systems reviewed & are unremarkable except as noted in HPI & below Physical Exam Physical Exam: Temp Pulse Resp BP Pulse Ox O2 Del Method 36.9 C 59 L 15 148/90 H 96 02/25/22 20:20 02/26/22 09:47 02/26/22 09:47 02/26/22 09:47 02/26/22 09:47 02/26/22 08:00 Constitutional: WD/WN, vitals as above Respiratory: normal respiratory effort, lungs clear to auscultation Cardiovascular: RRR, no murmur, no edema Gastrointestinal (Abdomen): normal bowel sounds, soft, nontender, no hepatosplenomegaly Neurologic: PERRL, EOMI, accommodation nl, no face palsy, no dysarthria Results & Data ([facility]) Vital Signs (Past 12 Hours) Vital Signs Pulse Resp BP Pulse Ox Pulse Ox O2 Del Method 02/26/22 09:47 59 L 15 148/90 H 96 02/26/22 08:00 59 L 18 141/53 H 97 Room Air 02/26/22 08:00 97 02/26/22 04:30 53 L 18 135/93 95 Room Air Laboratory Results Cardiac Enzymes 02/25/22 02/26/22 02/26/22 Range/Units 20:30 00:53 05:32 AST 16 (13-39) U/L Troponin I High Sens 8.7 10.3 9.8 (0-20) pg/ml Coagulation 02/25/22 02/26/22 Range/Units 20:30 05:32 PT 10.0 (9.0-12.0) Seconds APTT 25.3 25.7 (21.0-31.0) Seconds CBC 02/25/22 02/26/22 Range/Units 20:30 05:32 WBC 9.14 7.71 (4.8-10.8) K/ul RBC 5.02 5.00 (4.63-6.08) M/uL Hgb 14.8 14.7 (14.0-18.0) g/dl Hct 43.7 43.0 (40.1-51.0) % Plt Count 228 218 (130-400) K/uL Neut # (Auto) 6.11 4.61 (1.4-6.5) K/uL Lymph # (Auto) 2.14 2.10 (1.2-3.4) K/uL [place] # (Auto) 0.51 0.61 (0.24-0.82) K/uL Eos # (Auto) 0.27 0.28 (0-0.50) K/uL Baso # (Auto) 0.08 0.09 (0-0.2) K/uL Comprehensive Metabolic Panel 02/25/22 02/26/22 Range/Units 20:30 05:32 Sodium 135 L 137 (136-145) mmol/L Potassium 3.3 L 4.3 D (3.5-5.1) mmol/L Chloride 103 107 (98-107) mmol/L Carbon Dioxide 25 25 (21-32) mmol/L BUN 13 12 (6-23) mg/dl Creatinine 1.15 0.97 (0.6-1.4) mg/dl Glucose 187 H 91 (70-99(Fasting)) mg/dl Calcium 9.0 8.5 (8.5-10.1) mg/dl AST 16 (13-39) U/L ALT 20 (7-52) U/L Alkaline Phosphatase 74 (34-104) U/L Total Protein 6.9 (6.0-8.3) gm/dl Albumin 4.2 (3.4-5.0) gm/dl Diagnostic Findings EKG tracing performed 02/25/2022 revealed sinus rhythm at 74 bpm with incomplete right bundle branch block, age-indeterminate septal infarction pattern, no acute repolarization changes. Repeat tracing performed 02/26/2022 revealed sinus bradycardia 55 bpm, incomplete right bundle branch block, age-indeterminate septal infarction pattern, ST segments without acute repolarization changes. (1) Chest pain Chest pain type: unspecified Qualified Code(s): R07.9 - Chest pain, unspecified
--- NOTE | 2022-02-26 15:47 | Discharge Summary ---
Date of Service February 26, 2022 Admission HPI Per Admitting Provider History obtained from patient and records. Medical history significant for CAD status post stent, hypertension, hyperlipidemia, COPD, prediabetes, ongoing tobacco abuse. Last confinement October 2021 for NSTEMI. Severe multivessel CAD found on diagnostic cardiac catheterization. YESSI placement for 100% acute proximal first diagonal occlusion. 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 Some relief with nitroglycerin intake at home. Patient compliant with home meds. No unusual stress at home. Patient consulted ER for evaluation. 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 Principal Diagnosis chest pain Discharge Exam CONSTITUTIONAL: WNWD, vitals as above, generally well-appearing, NAD EYES: normal conjunctivae, no scleral icterus ENT: external ear and nose normal,MMM NECK: trachea midline, RESPIRATORY: clear to auscultation bilaterally, no crackles, rales or wheezes, normal respiratory effort CARDIOVASCULAR: regular rate and rhythm, S1 and 2 heard without murmurs, gallops or rubs, no JVD, no peripheral edema, CHEST: inspection of chest was normal GASTROINTESTINAL: soft, nontender, ND, no guarding MUSCULOSKELETAL: strength 5/5 throughout, head is normocephalic and atraumatic, neck supple, normal palpation of chest wall without tenderness SKIN: warm and dry, no rashes NEUROLOGIC: CN 2-12 grossly intact, no sensory deficit, normal cognition, normal speech, no tremor PSYCHIATRIC: alert cooperative and oriented to person, place and time. Euthymic mood, makes good eye contact, language grossly intact, recent and remote memory grossly intact. Discharge Data Allergies Allergy/AdvReac Type Severity Reaction Status Date / Time aspirin Allergy Intermediate asthma Verified 02/25/22 22:54 flare up Consultations 02/25/22 22:43 ED Decision to Admit Stat 02/26/22 01:52 Consult Cardiology Routine Hospital Course (1) Chest pain: (2) CAD, multiple vessel: (3) Tobacco abuse: Plan 51-year-old man with history of CAD presented with chest pain. He is still actively smoking. He had stable EKG findings and negative highly sensitive troponin overnight and underwent an exercise stress echocardiogram on 8/11. Resting echocardiogram revealed normal resting wall motion without significant wall motion abnormalities. There was no significant valvular pathology and the LVEF was normal. The stress portion of the study was negative for inducible ischemia. He started with a 3 out of 10 severity vague chest discomfort that improved with exercise. The stress EKG was negative for ischemia. His SARS-CoV-2 screening was negative. ESR and CRP levels did not reflect a cuevas ggestion of pericarditis. Stress test results suggested stable coronary heart disease. Medical therapy was recommended to be continued and isosorbide mononitrate extended release 30 mg by mouth daily was started at time of discharge. At time of discharge smoking cessation was strongly advised. He was hemodynamically stable and afebrile and symptom-free. He was eager to return home and was discharged in stable condition with close primary care follow-up recommended. Total Time Total Time Spent Total Time Spent (In Minutes): 60 Discharge Plan Discharge Items Patient Disposition: Home - Self-Care Reason For Visit: CHEST PAIN Discharge Diagnosis: chest pain Condition on Discharge: Good Activity: Resume your previous activity Non-emergency contact: Primary Care Provider and Waste Minimization Technician Call non-emergency contact if: you have any medication questions, your symptoms worsen, your pain is not controlled, your pain is worsening, your pain is unusual for you and your pain is concerning for you Follow-up/Referrals: Abdullahi Sanders MD [Primary Care Provider] - (Date & Time 03/04/2022 11:00 AM Provider Abdullahi Sanders MD [facility] ) Diet: Regular Addtl Attending Provider Instructions: Please take all medications as instructed on discharge list below. Please follow up with your primary care physician at the ate and time above to ensure that you are tolerating the new medicine without issue and that your chest pain symptoms have improved. It is highly recommended that you quit smoking completely to decrease the risk of future heart attacks. Please work with your primary are provider in this effort. There is a smoking cessation program here at [facility], also, if you are interested. Please contact [phone] for more information on this. It was a pleasure taking care of you! Please call if you have any questions or problems. You can reach a [facility] hospitalist on duty at [facility] 24 hours a day by calling [phone]. Take care of yourself. Tammi Gonzalez DO [facility] Hospitalist Pending Studies at Discharge: No Stand-Alone Forms: My [facility], Smoking Cessation Medications and DC Order Prescriptions: New isosorbide mononitrate 30 mg tablet extended release 24 hr 30 mg PO DAILY Qty: 30 0RF Continued aspirin 81 mg tablet,delayed release (DR/EC) 81 mg PO QAM Qty: 90 3RF clopidogrel 75 mg tablet 75 mg PO QAM Qty: 90 3RF lisinopril 20 mg tablet 20 mg PO DAILY nitroglycerin 0.4 mg tablet, sublingual 0.4 mg sublingual DIRECTED PRN (Reason: Chest Pain) escitalopram oxalate 10 mg tablet 10 mg PO DAILY metoprolol tartrate 25 mg tablet 12.5 mg PO BID rosuvastatin 40 mg tablet 40 mg PO DAILY Discharge Orders: Discharge Order (Routine); Ordered 02/26/22 Ordered By: Tammi Gonzalez Admission Data Admit Date/Time: 02/26/22 01:20 Attending Provider: Tammi Gonzalez Admit Provider: Rajesh Rand Primary Care Provider: Abdullahi Sanders Other Providers: Rajesh Rand ; Gerardo Lynn ; Kendrick Blair ; Jabari Parker ; Young Seymour ; RaffiKwabena caceres ; Abdullahi Bragg ; Cyndee Bell ; Mary Blevins ; Jane Mehta ; Joe Morrison
--- NOTE | 2022-02-27 06:06 | Electrocardiogram Report ---
Test Reason : Blood Pressure : / mmHG Vent. Rate : 074 BPM Atrial Rate : 074 BPM P-R Int : 116 ms QRS Dur : 100 ms QT Int : 376 ms P-R-T Axes : 066 007 055 degrees QTc Int : 417 ms Normal sinus rhythm with sinus arrhythmia Incomplete right bundle branch block Abnormal ECG When compared with ECG of 06-NOV-2021 06:10, No significant change Confirmed by Gurinder Nolan ([id number]) on 02/27/2022 6:06:39 AM Referred By: REFERRED SELF Confirmed By:Gurinder Nolan
--- NOTE | 2022-02-27 22:33 | Electrocardiogram Report ---
Test Reason : Blood Pressure : / mmHG Vent. Rate : 055 BPM Atrial Rate : 055 BPM P-R Int : 116 ms QRS Dur : 080 ms QT Int : 408 ms P-R-T Axes : 007 018 038 degrees QTc Int : 390 ms Sinus bradycardia RSR' or QR pattern in V1 suggests right ventricular conduction delay Abnormal ECG When compared with ECG of 25-FEB-2022 20:24, No significant change Confirmed by Gurinder Nolan ([id number]) on 02/27/2022 10:33:37 PM Referred By: REFERRED SELF Confirmed By:Gurinder Nolan
== END 2022-02-26 16:05 | disposition home or self-care (01) ==
LOC: EDINP 20:15 → ED 20:15 → EDINP 02-26 01:21